=== PATIENT | female | born 1950 | race American Indian/Alaskan Native ===

== ENCOUNTER 2017-03-21 11:23 | Outpatient (CLI) | payer OTHER ==
--- NOTE | 2017-03-21 14:26 | Mammography Report ---
BILATERAL MAMMOGRAM with CAD: HISTORY: Cancer screening. Comparison study is dated February 18, 2015. FINDINGS: The breast tissue is heterogeneously dense, which could obscure detection of small masses (approximately 50%-75% glandular). No mass, distortion, suspicious calcification, or skin change is seen. Stable right calcifications have benign features. IMPRESSION: Negative mammogram. There is no mammographic evidence of malignancy. RECOMMENDATION: Follow-up per ACS guidelines. BI-RADS CATEGORY: 1 = Negative ACR BI-RADS MAMMOGRAPHIC CODES: 0 = Needs additional imaging evaluation; 1 = Negative; 2 = Benign; 3 = Probably benign; 4 = Suspicious; 5 = Malignant; 6 = Known biopsy-proven malignancy COMMENT: 1. Dense breast tissue, i.e., adenosis, fibrocystic changes, etc., may obscure an underlying neoplasm. 2. Approximately 10% of cancers are not detected with mammography. 3. A negative mammography report should not delay biopsy if a clinically suspicious mass is present. COMMENT: Patient follow-up letters are generated in [employer].
== END 2017-03-21 11:24 | disposition home or self-care (01) ==
LOC: MAMMO 11:23
PROVIDERS: ATTEND Nurse Practitioner Family
DX: Z12.31 Encounter for screening mammogram for malignant neoplasm of breast (principal); I10 Essential (primary) hypertension; E11.9 Type 2 diabetes mellitus without complications; E78.00 Pure hypercholesterolemia, unspecified; Z79.84 Long term (current) use of oral hypoglycemic drugs; Z79.899 Other long term (current) drug therapy
CPT/HCPCS: 77067; G0202

== ENCOUNTER 2018-03-30 09:29 | Outpatient (CLI) | payer OTHER ==
--- NOTE | 2018-04-02 09:53 | Mammography Report ---
BILATERAL DIGITAL SCREENING MAMMOGRAM and DIGITAL BREAST TOMOSYNTHESIS (DBT) : 03/30/18 CLINICAL: Routine screening. COMPARISON:03/21/17 FINDINGS: The breasts are heterogeneously dense, which may obscure small masses. No mass, architectural distortion or suspicious calcifications. Note that CAD was not utilized for this examination. IMPRESSION: No mammographic evidence of malignancy. BI-RADS CATEGORY: 1 - - Negative RECOMMENDATION: Routine mammographic screening in one year. COMMENT: Patient follow-up letters are generated by our [employer] application.
== END 2018-03-30 09:30 | disposition home or self-care (01) ==
LOC: SPVWC 09:29
PROVIDERS: ATTEND Nurse Practitioner Family
DX: Z12.31 Encounter for screening mammogram for malignant neoplasm of breast (principal)
CPT/HCPCS: 77063; 77067

== ENCOUNTER 2018-05-23 10:03 | Outpatient (CLI) | payer OTHER ==
--- NOTE | 2018-05-23 10:49 | XRay Report ---
LUMBOSACRAL SPINE, FIVE VIEWS: HISTORY: Low back pain. Compared to 09/10/10. There is borderline osteopenia. Normal height and alignment of the lumbar vertebra. Anterior fixation device and disc spacer at L5-S1 appears unchanged in position since 2010. The remaining disc spaces are within normal limits. There is moderate facet arthropathy through the lumbar spine which has increased significantly since 2010. L3-4 and L4-5 are the most affected levels. IMPRESSION: Lumbar spondylosis as described. There is increased facet arthropathy since the previous exam. Stable fusion changes at L5-S1. No acute process.
== END 2018-05-23 10:04 | disposition home or self-care (01) ==
LOC: XRAY 10:03
PROVIDERS: ATTEND Nurse Practitioner Family
DX: M47.896 Other spondylosis, lumbar region (principal); M43.27 Fusion of spine, lumbosacral region; E78.00 Pure hypercholesterolemia, unspecified; I10 Essential (primary) hypertension; K21.9 Gastro-esophageal reflux disease without esophagitis; E11.9 Type 2 diabetes mellitus without complications; M19.90 Unspecified osteoarthritis, unspecified site; Z90.710 Acquired absence of both cervix and uterus
CPT/HCPCS: 72110

== ENCOUNTER 2019-03-07 05:42 | Day surgery (SDC) | payer BC, OTHER ==
--- NOTE | 2019-03-07 06:59 | Anesthesia Consultation ---
Anesthesia Consult and Med Hx Date of service: 03/07/19 - Airway Anesthetic Teeth Evaluation: Dentures ROM Head & Neck: Adequate Mental/Hyoid Distance: Adequate Mallampati Class: Class II Intubation Access Assessment: Probably Good - Pulmonary Exam CTA: Yes - Cardiac Exam Cardiac Exam: RRR - Pre-Operative Health Status ASA Pre-Surgery Classification: ASA3 - Pulmonary Hx Smoking: Yes (STOPPED 1998) Hx Asthma: No COPD: No Hx Sleep Apnea: No (DONIS PRE SCREEN HIGH RISK) - Cardiovascular System Hx Hypertension: Yes (SINCE AGE 26 YRS) - Central Nervous System Hx Back Pain: Yes (WITH RIGHT LEG PAIN) Hx Psychiatric Problems: Yes - Gastrointestinal Hx Gastroesophageal Reflux Disease: Yes - Endocrine Hx Renal Disease: No Hx Insulin Dependent Diabetes: No Hx Non-Insulin Dependent Diabetes: Yes (last metformin 03/06/19) - Hematic Hx Anemia: No - Additional Comments Anesthesia Medical History Comments: H/O palpitations, on metoprolol. ECHO shows good LV function(EF 55-60) with diastolic dysfunction.
[2019-03-07] MEDS ORDERED: NACL 0.9% 1000 ML 1,000 ML IV SCH (07:00)
[2019-03-07] MEDS ORDERED: LOPRESSOR PO ONE (07:00)
[2019-03-07] MEDS ORDERED: SUBLIMAZE ONE (07:33)
[2019-03-07] MEDS ORDERED: XYLOCAINE MPF 2% ONE (07:33)
[2019-03-07] MEDS ORDERED: DIPRIVAN 10 MG/ML IV ONE ×2 (07:33→08:36)
[2019-03-07] MEDS ORDERED: MARCAINE 0.5% INFILTRATI ONE ×3 (07:43→08:32)
--- NOTE | 2019-03-07 07:50 | Anesthesia Day of Surgery ---
Anesthesia Day of Surgery - Day of Surgery Patient Examined: Yes Patient H&P Reviewed: Yes Patient is NPO: Yes
[2019-03-07] MEDS ORDERED: ANCEF/STERILE WATER 2 GM/20 ML IV NR (08:00)
[2019-03-07] MEDS ORDERED: ZOFRAN ONE (08:26)
[2019-03-07] MEDS: SUBLIMAZE IV PRN ×2 (09:20→09:30)
--- NOTE | 2019-03-07 09:45 | Procedure Note ---
Date of procedure: 03/07/19 Pre-op diagnosis: mass left thumb Post-op diagnosis: same Procedure: Excision mass left thumb Procedure The patient was brought to the OR placed on the OR table in supine position following Mac anesthesia the patient's left upper extremity was prepped and draped in the usual sterile manner. A timeout procedure was done to identify the patient and the correct operative site. The arm was exsanguinated followed by inflation of the pneumatic tourniquet to 250 mmHg utilizing a bayonet-type incision centered over the IP joint of the thumb this was taken down through skin and subcutaneous the mass was seen and appeared to be a lobulated firm brownish in color this mass was shelled out from surrounding soft tissue structures this was then given to our scrub nurse and will be processed and pathology in addition the patient was noted to have osteophyte formation off of the dorsal surface of the IP joint again this was removed using Yana Combs next the wound was copiously irrigated the extensor tendon was intact following this the skin was closed in a standard routine fashion. Dressings were applied the patient tolerated the procedure there were no complications Anesthesia: MAC Surgeon: MONTY SAWYER Estimated blood loss: minimal Pathology: list (mass right thumb) Specimen disposition: to lab Condition: stable Disposition: PACU
[2019-03-07] MEDS ORDERED: NORCO 5/325 PO PRN (10:23)
[2019-03-07 10:32] VITALS: BP 124/73
[2019-03-07] MEDS ORDERED: NORCO 5/325 ONE (10:33)
--- NOTE | 2019-03-07 12:42 | Post Anesthesia Evaluation ---
- Post Anesthesia Evaluation Patient Participated: Yes Airway Patent: Yes Stable Respiratory Function: Yes Nausea/Vomiting: No Temp > 96.8F: Yes Pain Manageable: Yes Adequeate Hydration: Yes Anesthesia Complications: No
== END 2019-03-07 10:45 | disposition home or self-care (01) ==
LOC: OR 05:42
PROVIDERS: ATTEND Orthopaedic Surgery
DX: D48.1 Neoplasm of uncertain behavior of connective and other soft tissue (principal); E78.00 Pure hypercholesterolemia, unspecified; I10 Essential (primary) hypertension; K21.9 Gastro-esophageal reflux disease without esophagitis; M19.90 Unspecified osteoarthritis, unspecified site; E11.9 Type 2 diabetes mellitus without complications; F32.9 Major depressive disorder, single episode, unspecified; F41.9 Anxiety disorder, unspecified; Z79.899 Other long term (current) drug therapy; Z98.890 Other specified postprocedural states; Z79.82 Long term (current) use of aspirin; Z79.84 Long term (current) use of oral hypoglycemic drugs; Z98.51 Tubal ligation status; Z90.710 Acquired absence of both cervix and uterus; Z87.891 Personal history of nicotine dependence
CPT/HCPCS: 26160; 36415; 82962; 84132; 88307; J0690; J2405; J2704; J3010; J7030

== ENCOUNTER 2019-04-04 07:48 | Outpatient (CLI) | payer BC ==
--- NOTE | 2019-04-04 10:50 | Mammography Report ---
BILATERALDIGITAL SCREENING MAMMOGRAM WITH CAD INDICATION: Routine screening mammography. TECHNIQUE: Digital bilateral 2D mammography was obtained in the craniocaudal and mediolateral obliq ue projections. This examination was interpreted with the benefit of Computer-Aided Detection analysi s. COMPARISON: 03/21/2017 FINDINGS: Breast Density: The breasts are heterogeneously dense, which may obscure small masses. There is no evidence of dominant mass, suspicious calcifications or architectural distortion in eith er breast. IMPRESSION: No mammographic evidence of malignancy. BI-RADS Category 2: Benign. No mammographic evidence of malignancy. Recommend routine screening ma mmography in one year. A "normal" or negative report should not discourage follow up or biopsy of a clinically significant f inding. A written summary of these findings will be mailed to the patient. The patient will be entered into a mammography reporting system which will generate a reminder letter for the patient's next appointmen t at the appropriate interval. The [employer] recommends yearly mammograms starting at age 40 and continuing as l negro as a woman is in good health. Breast MRI is recommended for women with an approximate 20-25% or greater lifetime risk of breast cancer, including women with a strong family history of breast or ova mc cancer or who have been treated for Hodgkin's disease. Signer Name: Theron Medrano MD Signed: 04/04/2019 10:46 AM Workstation Name: [id number]
== END 2019-04-04 07:49 | disposition home or self-care (01) ==
LOC: MAMMO 07:48
PROVIDERS: ATTEND Nurse Practitioner Family
DX: Z12.31 Encounter for screening mammogram for malignant neoplasm of breast (principal); E78.00 Pure hypercholesterolemia, unspecified; K21.9 Gastro-esophageal reflux disease without esophagitis; E11.9 Type 2 diabetes mellitus without complications; Z90.710 Acquired absence of both cervix and uterus
CPT/HCPCS: 77067

== ENCOUNTER 2019-04-17 23:23 | Inpatient (IN) | payer BC ==
[2019-04-18 00:31] LABS: Basophils # (Auto) 0.1 K/mm3 (0.0-0.1); Basophils % (Auto) 0.5 % (0.0-1.8); Eosinophils % (Auto) 0.2 % (0.0-4.3); Hematocrit 37.6 % (30.3-42.9); Hemoglobin 12.2 gm/dl (10.1-14.3); Lymphocytes # (Auto) 1.5 K/mm3 (1.2-5.4); Mean Corpuscular HGB Conc 33 % (30-34); Mean Corpuscular Volume 80 fl (79-97); Monocytes # (Auto) 0.9 K/mm3 (0.0-0.8); Monocytes % (Auto) 6.9 % (0.0-7.3); Platelet Count 190 K/mm3 (140-440)
[2019-04-18] MEDS ORDERED: NACL 0.9% 1000 ML IV ONE (00:35)
[2019-04-18] MEDS ORDERED: TYLENOL PO ONE (00:35)
--- NOTE | 2019-04-18 00:38 | Emergency Department Report ---
ED General Adult HPI - General Chief complaint: Abdominal Pain Stated complaint: CHEST PAIN Time Seen by Provider: 04/18/19 00:26 Source: patient, RN notes reviewed, old records reviewed Mode of arrival: Ambulatory Limitations: No Limitations - History of Present Illness Initial comments: Primary care Dr.: Dr. Gibbons Past medical history: Hypertension, presumed neuropathy, on aspirin, diabetes, taking estradiol, arthritis, joint pain, back pain, reflux This is a 68-year-old female. The patient is not known to this provider previously. Patient presents to the ER with multiple complaints. Her first complaint is chest pain after swallowing. This started within the past 36 hours after she ate some raw hamburger. It does not radiate to the back, arms or neck. There is no vomiting. There is no diaphoresis. Her next complaint is abdominal and flank pain. The flank pain is in the right posterior flank, and left upper quadrant. It is intermittent. It does not radiate anywhere. It does not have exacerbating or relieving factors. Positive dysuria. No fevers that she is aware of. Complaint is headache. Headache is frontal. The headache is also bitemporal. The headache is present for the past 24-48 hours. The headache is not sudden or thunderclap in nature. The headache does not reach maximal intensity within the first hour of onset. It is not the worst headache of her life. She endorses a worse headache approximately 10 years ago. No neck pain, no loss of vision, no dental pain. She takes aspirin, but denies DVT, pulmonary embolism risk factors. Recently had elective surgery on her left thumb last month by Dr. Browne. -: Gradual, hour(s) Location: chest, back, abdomen Radiation: other Quality: other Consistency: other Improves with: other Worsens with: other - Related Data Home Medications Medication Instructions Recorded Confirmed Last Taken Aspirin 325 mg PO DAILY 09/02/15 03/07/19 03/01/19 09:00 Metoprolol 100 mg PO BID 09/02/15 03/07/19 03/06/19 Triamterene/Hydrochlorothiazid 1 tab PO DAILY 09/02/15 03/07/19 03/07/19 04:30 [Triamterene-Hctz 75-50 mg] metFORMIN 750 mg PO DAILY 08/23/16 03/07/19 03/06/19 09:00 Prazosin [Minipress] 2 mg PO BID 08/25/16 03/07/19 03/07/19 05:00 Baclofen [Lioresal] 10 mg PO DAILY 02/27/19 03/07/19 03/06/19 09:00 Gabapentin [Neurontin] 300 mg PO QHS 02/27/19 03/07/19 03/06/19 09:00 Pravastatin [Pravachol] 40 mg PO QHS 02/27/19 03/07/19 03/07/19 04:30 Previous Rx's Medication Instructions Recorded Last Taken Type HYDROcodone/APAP 5-325 [Frohna 1 each PO Q4HR PRN #20 tablet 03/07/19 Unknown Rx 5-325 mg TAB] Allergies Allergy/AdvReac Type Severity Reaction Status Date / Time No Known Allergies Allergy Verified 11/18/15 08:32 ED Review of Systems ROS: Stated complaint: CHEST PAIN Other details as noted in HPI Constitutional: denies: malaise Eyes: denies: eye discharge ENT: denies: epistaxis Respiratory: denies: wheezing Cardiovascular: chest pain Gastrointestinal: abdominal pain. denies: nausea Genitourinary: dysuria Musculoskeletal: back pain Skin: denies: lesions Neurological: headache. denies: weakness Psychiatric: denies: anxiety ED Past Medical Hx - Past Medical History Previous Medical History?: Yes Hx Hypertension: Yes (SINCE AGE 26 YRS) Hx Diabetes: Yes Hx GERD: Yes Hx Renal Disease: No Hx Arthritis: Yes Hx Asthma: No Hx COPD: No Hx HIV: No - Surgical History Past Surgical History?: Yes Additional Surgical History: Hysterectomy, Spinal fusion, Tubal ligation - Social History Smoking Status: Never Smoker Substance Use Type: None - Medications Home Medications: Home Medications Medication Instructions Recorded Confirmed Last Taken Type Aspirin 325 mg PO DAILY 09/02/15 03/07/19 03/01/19 09:00 History Metoprolol 100 mg PO BID 09/02/15 03/07/19 03/06/19 History Triamterene/Hydrochlorothiazid 1 tab PO DAILY 09/02/15 03/07/19 03/07/19 04:30 History [Triamterene-Hctz 75-50 mg] metFORMIN 750 mg PO DAILY 08/23/16 03/07/19 03/06/19 09:00 History Prazosin [Minipress] 2 mg PO BID 08/25/16 03/07/19 03/07/19 05:00 History Baclofen [Lioresal] 10 mg PO DAILY 02/27/19 03/07/19 03/06/19 09:00 History Gabapentin [Neurontin] 300 mg PO QHS 02/27/19 03/07/19 03/06/19 09:00 History Pravastatin [Pravachol] 40 mg PO QHS 02/27/19 03/07/19 03/07/19 04:30 History HYDROcodone/APAP 5-325 [Frohna 1 each PO Q4HR PRN #20 tablet 03/07/19 Unknown Rx 5-325 mg TAB] ED Physical Exam - General Limitations: No Limitations General appearance: alert, in no apparent distress - Head Head exam: Present: atraumatic, normocephalic - Eye Eye exam: Present: normal appearance, EOMI, other (visual acuity intact to finger counting, color perception, reading at a close distance). Absent: nyst agmus - ENT ENT exam: Present: normal exam, normal orophraynx, mucous membranes moist, normal external ear exam - Neck Neck exam: Present: normal inspection, full ROM. Absent: tenderness, meningismus - Respiratory Respiratory exam: Present: normal lung sounds bilaterally. Absent: respiratory distress - Cardiovascular Cardiovascular Exam: Present: normal rhythm, tachycardia, normal heart sounds. Absent: systolic murmur, diastolic murmur, rubs, gallop - GI/Abdominal GI/Abdominal exam: Present: soft. Absent: distended, tenderness, guarding, rebound, rigid, pulsatile mass - Extremities Exam Extremities exam: Present: normal inspection (left thumb has indwelling sutures, no redness, pus or streaking. Compartments soft in the left hand), full ROM, other (2+ pulses noted in the bilateral upper, lower extremities. Compartments soft. No long bony tenderness. The pelvis is stable.). Absent: pedal edema, joint swelling, calf tenderness - Back Exam Back exam: Present: normal inspection, full ROM, CVA tenderness (R), CVA tenderness (L). Absent: tenderness, muscle spasm, paraspinal tenderness, vertebral tenderness - Neurological Exam Neurological exam: Present: alert, oriented X3, other (Extraocular movements intact. Tongue midline. No facial droop. Facial sensation intact to light touch in the V1, V2, V3 distribution bilaterally. 5 and 5 strength in 4 extremities.. Sensation is intact to light touch in 4 extremities.). Absent: motor sensory deficit - Psychiatric Psychiatric exam: Present: normal affect, normal mood - Skin Skin exam: Present: warm, dry, intact, normal color. Absent: rash ED Course Vital Signs 04/17/19 04/18/19 23:35 01:09 Temperature 100.6 F H Pulse Rate 105 H Respiratory 19 16 Rate Blood Pressure 110/50 O2 Sat by Pulse 98 100 Oximetry - Reevaluation(s) Reevaluation #1: 04/18/19 01:24 Differential diagnosis, including but not limited to: Pneumonia, urinary tract infection, pulmonary embolism, GERD, gastritis, hiatal hernia, intra-abdominal infection, migraine headache, tension headache, cluster headache, dysphasia Assessment and plan: 68-year-old female with multiple complaints Complaint #1, chest pain after swallowing. Has a documented history of reflux. Troponin negative 1, EKG shows sinus tachycardia, not consistent with ST elevat ion myocardial infarction. Suspect this is related to esophageal dysmotility. However, given fever, tachycardia, recent surgery, we will obtain CT scan of the chest to exclude a pulmonary embolism. Complaint #2, flank pain and back pain, found to have a fever, tachycardia, leukocytosis, endorses dysuria, therefore, the patient most likely has a pyelonephritis. We will treat this with fluids, Tylenol and appropriate antibiotics. Complaint #3, headache. The patient has a GCS of 15. There is no neck pain or neck stiffness. She does not endorse any red flag signs or symptoms for her headache. She endorses that it appears to be consistent with prior headaches. She can receive IV fluids and Tylenol for her headache. More likely than not, plan to admit the patient to the medical service for advanced age, systemic inflammatory response syndrome. Found to be hypokalemic, and we will replete her potassium. ED Medical Decision Making - Lab Data Result diagrams: 04/17/19 23:59 04/17/19 23:59 Vital Signs 04/17/19 04/18/19 23:35 01:09 Temperature 100.6 F H Pulse Rate 105 H Respiratory 19 16 Rate Blood Pressure 110/50 O2 Sat by Pulse 98 100 Oximetry Lab Results 04/17/19 04/17/19 04/17/19 Range/Units Unknown 23:59 23:59 WBC 13.2 H (4.5-11.0) K/mm3 RBC 4.70 (3.65-5.03) M/mm3 Hgb 12.2 (10.1-14.3) gm/dl Hct 37.6 (30.3-42.9) % MCV 80 (79-97) fl MCH 26 L (28-32) pg MCHC 33 (30-34) % RDW 14.0 (13.2-15.2) % Plt Count 190 (140-440) K/mm3 Lymph % (Auto) 11.0 L (13.4-35.0) % [place] % (Auto) 6.9 (0.0-7.3) % Eos % (Auto) 0.2 (0.0-4.3) % Baso % (Auto) 0.5 (0.0-1.8) % Lymph # 1.5 (1.2-5.4) K/mm3 [place] # 0.9 H (0.0-0.8) K/mm3 Eos # 0.0 (0.0-0.4) K/mm3 Baso # 0.1 (0.0-0.1) K/mm3 Seg Neutrophils % 81.4 H (40.0-70.0) % Seg Neutrophils # 10.7 H (1.8-7.7) K/mm3 Sodium 138 (137-145) mmol/L Potassium 2.9 L* (3.6-5.0) mmol/L Chloride 95.5 L (98-107) mmol/L Carbon Dioxide 29 (22-30) mmol/L Anion Gap 16 mmol/L BUN 13 (7-17) mg/dL Creatinine 0.9 (0.7-1.2) mg/dL Estimated GFR > 60 ml/min BUN/Creatinine Ratio 14 % Glucose 136 H (65-100) mg/dL Calcium 9.5 (8.4-10.2) mg/dL Total Bilirubin 0.30 (0.1-1.2) mg/dL AST 15 (5-40) units/L ALT 12 (7-56) units/L Alkaline Phosphatase 66 (35-129) units/L Total Protein 7.8 (6.3-8.2) g/dL Albumin 4.1 (3.9-5) g/dL Albumin/Globulin Ratio 1.1 % Lipase (13-60) units/L Urine Color Yellow (Yellow) Urine Turbidity Slightly-cloudy (Clear) Urine pH 7.0 (5.0-7.0) Ur Specific [place] 1.015 (1.003-1.030) Urine Protein 30 mg/dl (Negative) mg/dL Urine Glucose (UA) Neg (Negative) mg/dL Urine Ketones Tr (Negative) mg/dL Urine Blood Sm (Negative) Urine Nitrite Neg (Negative) Urine Bilirubin Neg (Negative) Urine Urobilinogen 2.0 (<2.0) mg/dL Ur Leukocyte Esterase Lg (Negative) Urine WBC (Auto) 148.0 H (0.0-6.0) /HPF Urine RBC (Auto) 15.0 (0.0-6.0) /HPF U Epithel Cells (Auto) 10.0 (0-13.0) /HPF Urine Bacteria (Auto) 1+ (Negative) /HPF Urine Mucus Few /HPF 04/17/19 Range/Units 23:59 WBC (4.5-11.0) K/mm3 RBC (3.65-5.03) M/mm3 Hgb (10.1-14.3) gm/dl Hct (30.3-42.9) % MCV (79-97) fl MCH (28-32) pg MCHC (30-34) % RDW (13.2-15.2) % Plt Count (140-440) K/mm3 Lymph % (Auto) (13.4-35.0) % [place] % (Auto) (0.0-7.3) % Eos % (Auto) (0.0-4.3) % Baso % (Auto) (0.0-1.8) % Lymph # (1.2-5.4) K/mm3 [place] # (0.0-0.8) K/mm3 Eos # (0.0-0.4) K/mm3 Baso # (0.0-0.1) K/mm3 Seg Neutrophils % (40.0-70.0) % Seg Neutrophils # (1.8-7.7) K/mm3 Sodium (137-145) mmol/L Potassium (3.6-5.0) mmol/L Chloride (98-107) mmol/L Carbon Dioxide (22-30) mmol/L Anion Gap mmol/L BUN (7-17) mg/dL Creatinine (0.7-1.2) mg/dL Estimated GFR ml/min BUN/Creatinine Ratio % Glucose (65-100) mg/dL Calcium (8.4-10.2) mg/dL Total Bilirubin (0.1-1.2) mg/dL AST (5-40) units/L ALT (7-56) units/L Alkaline Phosphatase (35-129) units/L Total Protein (6.3-8.2) g/dL Albumin (3.9-5) g/dL Albumin/Globulin Ratio % Lipase 28 (13-60) units/L Urine Color (Yellow) Urine Turbidity (Clear) Urine pH (5.0-7.0) Ur Specific [place] (1.003-1.030) Urine Protein (Negative) mg/dL Urine Glucose (UA) (Negative) mg/dL Urine Ketones (Negative) mg/dL Urine Blood (Negative) Urine Nitrite (Negative) Urine Bilirubin (Negative) Urine Urobilinogen (<2.0) mg/dL Ur Leukocyte Esterase (Negative) Urine WBC (Auto) (0.0-6.0) /HPF Urine RBC (Auto) (0.0-6.0) /HPF U Epithel Cells (Auto) (0-13.0) /HPF Urine Bacteria (Auto) (Negative) /HPF Urine Mucus /HPF - EKG Data -: EKG Interpreted by Ct EKG shows normal: sinus rhythm Rate: tachycardia - EKG Data 04/18/19 01:26 This is a sinus tachycardia, 102 bpm, normal axis, normal intervals, borderline left ventricular hypertrophy, the EKG is abnormal, the EKG is not consistent with ST elevation myocardial infarction. The EKG appears to be grossly unchanged from prior EKG from October 2015. - Radiology Data Radiology results: pending Critical care attestation.: If time is entered above; I have spent that time in minutes in the direct care of this critically ill patient, excluding procedure time. ED Disposition Clinical Impression: Sepsis, Pyelonephritis, Acute chest pain, Headache, Hypokalemia Disposition: OP ADMIT IP TO THIS HOSP Is pt being admited?: Yes Condition: Good Instructions: Abdominal Pain (ED), Chest Pain (ED) Referrals: ED DECKER MD [Primary Care Provider] - 3-5 Days
[2019-04-18 00:51] LABS: Alanine Aminotransferase 12 units/L (7-56); Albumin 4.1 g/dL (3.9-5); BUN/Creatinine Ratio 14; Blood Urea Nitrogen 13 mg/dL (7-17); Calcium 9.5 mg/dL (8.4-10.2); Hemolysis Index 1
[2019-04-18 01:09] LABS: Bacteria,Urine 1+ /HPF (Negative); Bilirubin,Urine NEG (Negative); Blood,Urine SM (Negative); Color,Urine Yellow (Yellow); Mucus,Urine FEW /HPF
[2019-04-18] MEDS ORDERED: ROCEPHIN/NS 1 GM/50 ML 1 GM/50 ML BAG IV ONE (01:17)
[2019-04-18] MEDS ORDERED: K-DUR PO ONE (01:18)
--- NOTE | 2019-04-18 01:24 | XRay Report ---
CHEST 1 VIEW 04/18/2019 12:38 AM INDICATION / CLINICAL INFORMATION: Chest pain and fever. One day history of chest and abdominal pain occurring after eating with radiati on to the back. COMPARISON: None available. FINDINGS: SUPPORT DEVICES: None. HEART / MEDIASTINUM: No significant abnormality. LUNGS / PLEURA: No significant pulmonary or pleural abnormality. No pneumothorax. ADDITIONAL FINDINGS: No significant additional findings. IMPRESSION: No acute findings. Signer Name: Cachorro Ross MD Signed: 04/18/2019 1:19 AM Workstation Name: [email or web address]
[2019-04-18 01:58] LABS: INR 1.1 (0.87-1.13)
[2019-04-18 01:59] LABS: Partial Thromboplastin Time 29.8 Sec. (24.2-36.6)
--- NOTE | 2019-04-18 02:43 | Cat Scan Report ---
CT HEAD WITHOUT CONTRAST INDICATION : Headache. Fever. TECHNIQUE: Axial, coronal and sagittal CT imaging was performed from the skull apex through the skul l base without contrast. All CT scans at this location are performed using CT dose reduction for ALA RA by means of automated exposure control. COMPARISON: None available. FINDINGS: PARENCHYMA: No mass, midline shift, hemorrhage, extraaxial collection or acute territorial infarctio n. VENTRICLES: Symmetric and normal in size. SOFT TISSUES: Soft tissues including the orbits appear normal. BONES: No acute osseous abnormality. SINUSES: No significant abnormality. ADDITIONAL FINDINGS: None. IMPRESSION: No acute abnormality. Signer Name: Cachorro Ross MD Signed: 04/18/2019 2:38 AM Workstation Name: [id number]
--- NOTE | 2019-04-18 03:35 | Cat Scan Report ---
CTA CHEST WITH IV CONTRAST INDICATION: Chest pain. Fever. Dysphagia. TECHNIQUE: Axial CT images were obtained through the chest after injection of 100 cc Omnipaque 350 IV contrast. 3 plane MIP reconstructions were produced. All CT scans at this location are performed using CT dose reduction for ALARA by means of automated exposure control. COMPARISON: One view of the chest from earlier today. FINDINGS: PULMONARY ARTERIES: Well-opacified without visualization of thromboemboli. AORTA AND ARTERIES: No acute abnormality. MEDIASTINUM: No mass, lymphadenopathy or other significant abnormality. The heart is normal in size w ithout a pericardial effusion. The trachea and main bronchi are patent and normal in caliber. LUNGS: Dependent atelectasis is noted bilaterally without a suspicious area of consolidation, nodule or mass. No pneumothorax or pleural effusion is seen. ADDITIONAL FINDINGS: None. UPPER ABDOMEN: No acute findings. BONES: No significant osseous abnormality. IMPRESSION: 1. No CT evidence for pulmonary embolism. 2. No acute findings. Signer Name: Cachorro Ross MD Signed: 04/18/2019 3:30 AM Workstation Name: [id number]
--- NOTE | 2019-04-18 04:06 | Cat Scan Report ---
CT ABDOMEN AND PELVIS WITH CONTRAST HISTORY: Generalized abdominal pain since Monday. Back pain. Fever. COMPARISON: No relevant prior imaging study available. TECHNIQUE: Axial, coronal and sagittal CT imaging of the abdomen and pelvis was performed after inje ction of 100 cc Omnipaque [address] scans at this location are performed using CT dose red uction for ALARA by means of automated exposure control. FINDINGS: LOWER CHEST: There is bibasilar atelectasis without an additional significant abnormality. LIVER: Enlarged without an additional significant abnormality. BILIARY: No significant abnormality. PANCREAS: No significant abnormality. SPLEEN: No significant abnormality. ADRENALS: No significant abnormality. KIDNEYS AND URETERS: Patchy areas of decreased attenuation are seen throughout the left kidney and to a lesser extent along the right kidney. No distinct mass, stones or hydroureteronephrosis. GI TRACT: No significant abnormality of the stomach or small bowel. There is generalized colonic dive rticulosis without evidence of diverticulitis. Unremarkable appendix. PERITONEUM: No free fluid. No free air. No fluid collection. LYMPH NODES: Shotty periaortic nodes are present. VASCULATURE: The aorta is normal in caliber with mild aortoiliac atherosclerosis. URINARY BLADDER: No significant abnormality. REPRODUCTIVE ORGANS: Prior hysterectomy. No significant abnormality. ADDITIONAL FINDINGS: None. SKELETAL SYSTEM: No acute abnormality. There are degenerative changes of the spine. Fusion of L5-S1 a ppears unremarkable. IMPRESSION: 1. Suspected bilateral pyelonephritis. 2. Additional findings as above. Signer Name: Cachorro Ross MD Signed: 04/18/2019 4:01 AM Workstation Name: [id number]
[2019-04-18] MEDS ORDERED: NACL 0.9% 1000 ML 1,000 ML ONE (04:44)
[2019-04-18] MEDS ORDERED: ZOFRAN IV PRN (05:00)
[2019-04-18] MEDS ORDERED: SODIUM CHLORIDE FLUSH SYRINGE 10 ML IV PRN (05:00)
--- NOTE | 2019-04-18 05:07 | History and Physical Report ---
History of Present Illness Date of examination: 04/18/19 History of present illness: 68-year-old woman with a history of hypertension, diabetes, GERD comes to the emergency room with complaints of chest pain. Pain is in the epigastric area is which she described as a dull pain, intermittent 5 Minutes, intensity 5/10, no radiation, cannot identify exacerbating or relieving factors. Denies nausea and vomiting, palpitation, shortness of breath. Admits to dysuria, frequency, lower abdominal and flank pain, headache which is resolved Review of systems Constitutional: no weight loss, chills, fever Ears, eyes, nose, mouth and throat: no nasal congestion, no nasal discharge, no sinus pressure, no vision change, no red eye. Neck: No neck pain or rigidity. Cardiovascular: no palpitations, chest pain Respiratory: no cough, shortness of breath Gastrointestinal: no hematochezia, abdominal pain Genitourinary : no frequency , no hematuria Musculoskeletal: no joint swelling or muscle ache Integumentary: no rash, no pruritis Neurological: no parathesias, no focal weakness Endocrine: no cold or heat intolerance, no polyuria or polydipsia Hematologic/Lymphatic: no easy bruising, no easy bleeding, no gland swelling Allergic/Immunologic: no urticaria, no angioedema. PAST MEDICAL HISTORY:hypertension, diabetes, GERD PAST SURGICAL HISTORY: Hysterectomy, tubal ligation, spinal fusion SOCIAL HISTORY: Denies alcohol, drugs, tobacco FAMILY HISTORY: Hypertension Medications and Allergies Allergies Allergy/AdvReac Type Severity Reaction Status Date / Time No Known Allergies Allergy Verified 11/18/15 08:32 Home Medications Medication Instructions Recorded Confirmed Last Taken Type Aspirin 325 mg PO DAILY 09/02/15 04/18/19 03/01/19 09:00 History Metoprolol 100 mg PO BID 09/02/15 04/18/19 03/06/19 History Triamterene/Hydrochlorothiazid 1 tab PO DAILY 09/02/15 04/18/19 03/07/19 04:30 History [Triamterene-Hctz 75-50 mg] metFORMIN 750 mg PO DAILY 08/23/16 04/18/19 03/06/19 09:00 History Prazosin [Minipress] 2 mg PO BID 08/25/16 04/18/19 03/07/19 05:00 History Baclofen [Lioresal] 10 mg PO DAILY 02/27/19 04/18/19 03/06/19 09:00 History Gabapentin [Neurontin] 300 mg PO QHS 02/27/19 04/18/19 03/06/19 09:00 History Pravastatin [Pravachol] 40 mg PO QHS 02/27/19 04/18/19 03/07/19 04:30 History HYDROcodone/APAP 5-325 [[place] 1 each PO Q4HR PRN #20 tablet 03/07/19 04/18/19 Unknown Rx 5-325 mg TAB] Active Meds: Active Medications Acetaminophen (Tylenol) 650 mg PO Q4H PRN PRN Reason: Pain MILD(1-3)/Fever >100.5/ARIAS Enoxaparin Sodium (Lovenox) 30 mg SUB-Q QDAY TERRANCE Ondansetron HCl (Zofran) 4 mg IV Q8H PRN PRN Reason: Nausea And Vomiting Oxycodone/Acetaminophen (Percocet 5/325) 1 tab PO Q6H PRN PRN Reason: Pain, Moderate (4-6) Sodium Chloride (Sodium Chloride Flush Syringe 10 Ml) 10 ml IV BID TERRANCE Sodium Chloride (Sodium Chloride Flush Syringe 10 Ml) 10 ml IV PRN PRN PRN Reason: LINE FLUSH Exam - Physical Exam Narrative exam: General Apperance: The patient lying in bed, breathing comfortable HEENT: Normocephalic, atraumatic. Pupils equally round and reactive to light, EOMI, no sclericterus or JVD or thyromegaly or nodule. , no carotid bruit, mucous membranes moist, no exudate or erythema Heart: S1-S2, regular is rhythm Lungs: Clear to auscultation bilaterally, breathing comfortable Abdomen: Positive bowel sounds, soft, nontender, nondistended, no organomegaly Extremities: No edema cyanosis clubbing Skin: no rash, nodule, warm and dry Neuro: cranial nerves 2-12 intact, speech is fluent, motor/sensory intact - Constitutional Vitals: Temp Pulse Resp BP Pulse Ox 98.8 F 90 18 131/85 99 04/18/19 03:10 04/18/19 03:10 04/18/19 03:10 04/18/19 03:10 04/18/19 03:10 Results - Labs CBC & Chem 7: 04/18/19 05:18 04/18/19 05:18 Labs: Abnormal lab results 04/17/19 04/17/19 04/17/19 Range/Units Unknown 23:59 23:59 WBC 13.2 H (4.5-11.0) K/mm3 MCH 26 L (28-32) pg Lymph % (Auto) 11.0 L (13.4-35.0) % [place] # 0.9 H (0.0-0.8) K/mm3 Seg Neutrophils % 81.4 H (40.0-70.0) % Seg Neutrophils # 10.7 H (1.8-7.7) K/mm3 D-Dimer (0-234) ng/mlDDU Potassium 2.9 L* (3.6-5.0) mmol/L Chloride 95.5 L (98-107) mmol/L Glucose 136 H (65-100) mg/dL Urine WBC (Auto) 148.0 H (0.0-6.0) /HPF 04/18/19 Range/Units 01:07 WBC (4.5-11.0) K/mm3 MCH (28-32) pg Lymph % (Auto) (13.4-35.0) % [place] # (0.0-0.8) K/mm3 Seg Neutrophils % (40.0-70.0) % Seg Neutrophils # (1.8-7.7) K/mm3 D-Dimer 632.59 H (0-234) ng/mlDDU Potassium (3.6-5.0) mmol/L Chloride (98-107) mmol/L Glucose (65-100) mg/dL Urine WBC (Auto) (0.0-6.0) /HPF - Imaging and Cardiology EKG: image reviewed Chest x-ray: report reviewed CT scan - abdomen: report reviewed CT scan - chest: report reviewed CT Scan - head: report reviewed CT scan - pelvis: report reviewed Assessment and Plan Assessment Chest pain, rule out ACS Bilateral pyelonephritis Hypokalemia Hypertension Diabetes GERD Plan Admit to medicine Check cardiac enzymes, stress test Start IV Rocephin, follow cultures, potassium repleted Check fingersticks initiate insulin sliding scale DVT prophylaxis
[2019-04-18] MEDS ORDERED: APRESOLINE IV PRN (05:08)
[2019-04-18] MEDS ORDERED: D50W (25GM) Syringe IV PRN (05:09)
[2019-04-18 05:36] LABS: Basophils % (Auto) 0.4 % (0.0-1.8); Eosinophils % (Auto) 0.1 % (0.0-4.3); Hemoglobin 11.9 gm/dl (10.1-14.3); Lymphocytes # (Auto) 1.1 K/mm3 (1.2-5.4); Lymphocytes % (Auto) 9.3 % (13.4-35.0); Mean Corpuscular HGB Conc 32 % (30-34); Mean Corpuscular Volume 81 fl (79-97); Monocytes # (Auto) 0.3 K/mm3 (0.0-0.8); Monocytes % (Auto) 2.8 % (0.0-7.3); Platelet Count 166 K/mm3 (140-440); Red Blood Count 4.56 M/mm3 (3.65-5.03); Red Cell Distribution Width 14.2 % (13.2-15.2)
[2019-04-18 05:56] LABS: BUN/Creatinine Ratio 14; Blood Urea Nitrogen 11 mg/dL (7-17); Calcium 8.4 mg/dL (8.4-10.2); Hemolysis Index 229
[2019-04-18] MEDS: TYLENOL PO PRN ×2 (07:01→20:22)
[2019-04-18] MEDS ORDERED: LEXISCAN IV ONE ×2 (07:55→08:00)
[2019-04-18] MEDS ORDERED: NON-FORMULARY (Aspirin 325 MG) PO SCH (10:00)
[2019-04-18] MEDS ORDERED: TRIAMTERENE PO SCH (10:00)
[2019-04-18] MEDS ORDERED: HYDROCHLOROTHIAZID PO SCH (10:00)
[2019-04-18] MEDS ORDERED: LOVENOX SUB-Q SCH (10:00)
--- NOTE | 2019-04-18 11:26 | Vascular Lab Report ---
BILATERAL DUPLEX DOPPLER LOWER EXTREMITY VEINS INDICATION: Bilateral lower extremity pain and swelling TECHNIQUE: Duplex doppler imaging was performed through the veins of both lower extremities using flor ous compression and other maneuvers. COMPARISON: None available. FINDINGS: Right Common Femoral vein: Negative. Right Superficial Femoral vein: Negative. Right Popliteal vein: Negative. Right Calf veins: Negative. Left Common Femoral vein: Negative. Left Superficial Femoral vein: Negative. Left Popliteal vein: Negative. Left Calf veins: Negative. Additional findings: None. IMPRESSION: No sonographic evidence for DVT in either lower extremity. Signer Name: Guilherme Giles MD Signed: 04/18/2019 11:21 AM Workstation Name: [id number]
[2019-04-18] MEDS: LIORESAL PO SCH (12:46)
[2019-04-18] MEDS: MINIPRESS PO SCH ×2 (12:46→22:09)
[2019-04-18] MEDS: ASPIRIN PO SCH (12:46)
[2019-04-18] MEDS: MAXZIDE-25 PO SCH (12:46)
[2019-04-18] MEDS: LOVENOX SUB-Q SCH (12:47)
[2019-04-18] MEDS: SODIUM CHLORIDE FLUSH SYRINGE 10 ML IV SCH ×2 (12:47→22:15)
[2019-04-18] MEDS: HumuLIN R SUB-Q SCH ×3 (12:47→22:08)
--- NOTE | 2019-04-18 16:08 | Event Note ---
Date: 04/18/19 Patient seen and examined, noted some treatment for UTI about 2 weeks ago and then shortly before admission felt she ingested burger with "bad meat" had a sensation of food stuck in his throat. She is advised of clinical finding and plan of care including monitoring for 24-48 hrs of no fever. Continue abx
[2019-04-18] MEDS: PRAVACHOL PO SCH (22:08)
[2019-04-18] MEDS: NEURONTIN PO SCH (22:08)
[2019-04-18] MEDS: ROCEPHIN/NS 1 GM/50 ML 1 GM/50 ML BAG IV SCH (22:17)
[2019-04-19] MEDS: HumuLIN R SUB-Q SCH ×6 (01:08→21:37)
[2019-04-19 05:29] LABS: Hematocrit 34.9 % (30.3-42.9); Hemoglobin 11.6 gm/dl (10.1-14.3); Mean Corpuscular HGB Conc 33 % (30-34); Mean Corpuscular Volume 80 fl (79-97); Red Blood Count 4.39 M/mm3 (3.65-5.03)
[2019-04-19 05:30] LABS: Platelet Count 163 K/mm3 (140-440); Red Cell Distribution Width 14.2 % (13.2-15.2)
[2019-04-19 05:44] LABS: Calcium 8.5 mg/dL (8.4-10.2); Hemolysis Index 0
[2019-04-19 06:16] LABS: BUN/Creatinine Ratio 8; Blood Urea Nitrogen 6 mg/dL (7-17)
[2019-04-19] MEDS ORDERED: K-DUR PO NR (08:24)
[2019-04-19] MEDS: PERCOCET 5/325 PO PRN ×2 (08:24→20:00)
[2019-04-19] MEDS: ASPIRIN PO SCH (10:01)
[2019-04-19] MEDS: LOVENOX SUB-Q SCH (10:01)
[2019-04-19] MEDS: SODIUM CHLORIDE FLUSH SYRINGE 10 ML IV SCH ×2 (10:03→21:44)
[2019-04-19] MEDS: LIORESAL PO SCH (10:03)
[2019-04-19] MEDS: MAXZIDE-25 PO SCH (10:11)
--- NOTE | 2019-04-19 13:22 | Treadmill Report ---
SINGLE ISOTOPE DUAL STUDY MYOCARDIAL PERFUSION SCAN REPORT AGE: 68. SEX: Female. REFERRING PHYSICIAN: Dr. Erlinda Todd ____. Seen and directed by Dr. Татьяна Kwan. DESCRIPTION OF PROCEDURE: The patient received 10 mCi of technetium 99m Myoview intravenously under resting conditions. Resting myocardial perfusion scan was done. Subsequently, the patient underwent Lexiscan stress test as per the protocol. During Lexiscan stress, the patient received 28 mCi of technetium 99m Myoview intravenously. After 30-60 minutes, post stress images were done. Computerized reconstruction images were performed for analysis. The post-stress images did not reveal any perfusion abnormality. Gated study did not reveal any wall motion abnormality. The left ventricular ejection fraction was normal and was calculated to be 71%. The resting images were also normal. CONCLUSIONS: 1. Normal resting and stress myocardial perfusion scan images after the patient underwent Lexiscan stress test. 2. No wall motion abnormality. 3. Normal left ventricular ejection fraction of 71%. JOB# [id number] [facility]
--- NOTE | 2019-04-19 13:41 | Progress Note ---
Assessment and Plan Assessment and plan: 68-year-old woman with a history of hypertension, diabetes, GERD comes to the emergency room with complaints of chest pain. Pain is in the epigastric area is which she described as a dull pain, intermittent 5 Minutes, intensity 5/10, no radiation, cannot identify exacerbating or relieving factors. Denies nausea and vomiting, palpitation, shortness of breath. Admits to dysuria, frequency, lower abdominal and flank pain, headache which is resolved Per patient symptoms of dysuria and hematuria started about 2 weeks ago, had some antibiotics outpatient with temporal improvement in symptoms, while he maturia resolved, dysuria persisted Culture: Urine Cx- GNR Imaging CT head: Negative for acute pathology US/DOPPLER LOWER EXT: Negative for DVT CXR: Negative CTAP: Pyelonephritis, L5 through S1 fusion Sepsis secondary to Acute Cystitis Acute pyelonephritis GNR Hypokalemia Atypical chest pain secondary to GERD Severe GERD now improved, HTN DM Type 2 with Hyperglycemia Plan Continue supportive care Continue abx and monitor for resolution of fever stress test done and was negative, chest pain resolved DVT/GI prophy Can downgrade patient to [facility]. History Interval history: Chest pain and bilateral flank pain Patient seen and examined this time in no acute distress plus improvement in bilateral flank pain and chest pain. Hospitalist Physical - Physical exam Narrative exam: VITAL SIGNS: Reviewed. GENERAL: The patient appears normally developed, Vital signs as documented. HEAD: No signs of head trauma. EYES: Pupils are equal. Extraocular motions intact. EARS: Hearing grossly intact. MOUTH: Oropharynx is normal. NECK: No adenopathy, no JVD. CHEST: Chest with clear breath sounds bilaterally. No wheezes, rales, or rhonchi. CARDIAC: Regular rate and rhythm. S1 and S2, without murmurs, gallops, or rubs. VASCULAR: No Edema. Peripheral pulses normal and equal in all extremities. ABDOMEN: Soft, non tender and non distended. No rebound or guarding, and no masses palpated. Bowel Sounds normal. MUSCULOSKELETAL: Good range of motion of all major joints. Extremities without clubbing, cyanosis or edema. NEUROLOGIC EXAM: Alert and oriented x 3 No focal sensory or strength deficits. Speech normal. Follows commands. PSYCHIATRIC: Mood normal. SKIN: detial exam as documented in skin assessment - Constitutional Vitals: Temp Pulse Resp BP Pulse Ox 98.1 F 104 H 20 123/78 100 04/19/19 09:49 04/19/19 09:49 04/19/19 09:49 04/19/19 09:49 04/19/19 09:49 Results - Labs CBC & Chem 7: 04/19/19 04:45 04/19/19 04:45 Labs: Laboratory Last Values WBC 7.3 K/mm3 (4.5-11.0) 04/19/19 04:45 RBC 4.39 M/mm3 (3.65-5.03) 04/19/19 04:45 Hgb 11.6 gm/dl (10.1-14.3) 04/19/19 04:45 Hct 34.9 % (30.3-42.9) 04/19/19 04:45 MCV 80 fl (79-97) 04/19/19 04:45 MCH 27 pg (28-32) L 04/19/19 04:45 MCHC 33 % (30-34) 04/19/19 04:45 RDW 14.2 % (13.2-15.2) 04/19/19 04:45 Plt Count 163 K/mm3 (140-440) 04/19/19 04:45 Lymph % (Auto) 9.3 % (13.4-35.0) L 04/18/19 05:18 [place] % (Auto) 2.8 % (0.0-7.3) 04/18/19 05:18 Eos % (Auto) 0.1 % (0.0-4.3) 04/18/19 05:18 Baso % (Auto) 0.4 % (0.0-1.8) 04/18/19 05:18 Lymph # 1.1 K/mm3 (1.2-5.4) L 04/18/19 05:18 [place] # 0.3 K/mm3 (0.0-0.8) 04/18/19 05:18 Eos # 0.0 K/mm3 (0.0-0.4) 04/18/19 05:18 Baso # 0.0 K/mm3 (0.0-0.1) 04/18/19 05:18 Seg Neutrophils % 87.4 % (40.0-70.0) H 04/18/19 05:18 Seg Neutrophils # 10.7 K/mm3 (1.8-7.7) H 04/18/19 05:18 PT 13.9 Sec. (12.2-14.9) 04/18/19 01:07 INR 1.10 (0.87-1.13) 04/18/19 01:07 APTT 29.8 Sec. (24.2-36.6) 04/18/19 01:07 632.59 ng/mlDDU (0-234) H 04/18/19 01:07 Sodium 144 mmol/L (137-145) 04/19/19 04:45 Potassium 3.5 mmol/L (3.6-5.0) L D 04/19/19 04:45 Chloride 106.1 mmol/L (98-107) 04/19/19 04:45 Carbon Dioxide 27 mmol/L (22-30) 04/19/19 04:45 14 mmol/L 04/19/19 04:45 BUN 6 mg/dL (7-17) L 04/19/19 04:45 0.8 mg/dL (0.7-1.2) 04/19/19 04:45 Estimated GFR > 60 ml/min 04/19/19 04:45 8 % 04/19/19 04:45 Glucose 120 mg/dL (65-100) H 04/19/19 04:45 POC Glucose 138 (70-105) H 04/19/19 12:52 Lactic Acid 1.50 mmol/L (0.7-2.0) 04/18/19 03:38 Calcium 8.5 mg/dL (8.4-10.2) 04/19/19 04:45 0.30 mg/dL (0.1-1.2) 04/17/19 23:59 AST 15 units/L (5-40) 04/17/19 23:59 ALT 12 units/L (7-56) 04/17/19 23:59 66 units/L (35-129) 04/17/19 23:59 < 0.010 ng/mL (0.00-0.029) 04/18/19 03:38 7.8 g/dL (6.3-8.2) 04/17/19 23:59 4.1 g/dL (3.9-5) 04/17/19 23:59 1.1 % 04/17/19 23:59 28 units/L (13-60) 04/17/19 23:59 Yellow (Yellow) 04/17/19 Unknown Slightly-cloudy (Clear) 04/17/19 Unknown 7.0 (5.0-7.0) 04/17/19 Unknown Ur Specific [place] 1.015 (1.003-1.030) 04/17/19 Unknown 30 mg/dl mg/dL (Negative) 04/17/19 Unknown Neg mg/dL (Negative) 04/17/19 Unknown Tr mg/dL (Negative) 04/17/19 Unknown Sm (Negative) 04/17/19 Unknown Neg (Negative) 04/17/19 Unknown Neg (Negative) 04/17/19 Unknown 2.0 mg/dL (<2.0) 04/17/19 Unknown Ur Leukocyte Esterase Lg (Negative) 04/17/19 Unknown 148.0 /HPF (0.0-6.0) H 04/17/19 Unknown 15.0 /HPF (0.0-6.0) 04/17/19 Unknown U Epithel Cells (Auto) 10.0 /HPF (0-13.0) 04/17/19 Unknown 1+ /HPF (Negative) 04/17/19 Unknown Few /HPF 04/17/19 Unknown Active Medications - Current Medications Current Medications: Generic Name Dose Route Start Last Admin Trade Name Freq PRN Reason Stop Dose Admin Acetaminophen 650 mg 04/18/19 05:00 04/18/19 20:22 Tylenol PO 650 mg Q4H PRN Administration Pain MILD(1-3)/Fever >100.5/ARIAS Aspirin 325 mg 04/18/19 10:00 04/19/19 10:01 Aspirin PO 325 mg QDAY TERRANCE Administration Baclofen 10 mg 04/18/19 10:00 04/18/19 12:46 Lioresal PO 10 mg DAILY TERRANCE Administration Dextrose 50 ml 04/18/19 05:09 D50w (25gm) Syringe IV PRN PRN Hypoglycemia Enoxaparin Sodium 40 mg 04/18/19 10:00 04/19/19 10:01 Lovenox SUB-Q 40 mg QDAY@1000 TERRANCE Administration Gabapentin 300 mg 04/18/19 22:00 04/18/19 22:08 Neurontin PO 300 mg QHS TERRANCE Administration Hydralazine HCl 5 mg 04/18/19 05:08 Apresoline IV Q6H PRN Hypertension Ceftriaxone Sodium 1 gm in 50 mls @ 100 mls/hr 04/18/19 22:00 04/18/19 22:17 Rocephin/Ns 1 Gm/50 Ml IV 100 mls/hr Q24HR@2200 TERRANCE Administration Protocol Insulin Human Regular 0 units 04/18/19 07:30 04/19/19 09:00 Humulin R SUB-Q Not Given ACHS [facility] Protocol Ondansetron HCl 4 mg 04/18/19 05:00 Zofran IV Q8H PRN Nausea And Vomiting Oxycodone/Acetaminophen 1 tab 04/18/19 05:00 04/19/19 08:24 Percocet 5/325 PO 1 tab Q6H PRN Administration Pain, Moderate (4-6) Pravastatin Sodium 40 mg 04/18/19 22:00 04/18/19 22:08 Pravachol PO 40 mg QHS TERRANCE Administration Prazosin HCl 2 mg 04/18/19 10:00 04/18/19 22:09 Minipress PO 2 mg BID TERRANCE Administration Sodium Chloride 10 ml 04/18/19 10:00 04/19/19 10:03 Sodium Chloride Flush Syringe 10 Ml IV 10 ml BID TERRANCE Administration Sodium Chloride 10 ml 04/18/19 05:00 Sodium Chloride Flush Syringe 10 Ml IV PRN PRN LINE FLUSH Triamterene/HCTZ 2 each 04/18/19 10:00 04/19/19 10:11 Maxzide-25 PO 2 each QAM TERRANCE Administration
[2019-04-19] MEDS: MINIPRESS PO SCH ×2 (14:59→21:35)
[2019-04-19] MEDS: PRAVACHOL PO SCH (21:34)
[2019-04-19] MEDS: ROCEPHIN/NS 1 GM/50 ML 1 GM/50 ML BAG IV SCH (21:34)
[2019-04-19] MEDS: NEURONTIN PO SCH (21:34)
[2019-04-20 07:59] VITALS: BP 129/75
--- NOTE | 2019-04-20 08:41 | Discharge Summary ---
Providers - Providers Date of Admission: 04/19/19 10:07 Attending physician: CORA GROSS MD Primary care physician: KATHIE MANZANARES Hospitalization Condition: Good Hospital course: 68-year-old woman with a history of hypertension, diabetes, GERD comes to the emergency room with complaints of chest pain. Pain is in the epigastric area is which she described as a dull pain, intermittent 5 Minutes, intensity 5/10, no radiation, cannot identify exacerbating or relieving factors. Denies nausea and vomiting, palpitation, shortness of breath. Admits to dysuria, frequency, lower abdominal and flank pain, headache which is resolved Per patient symptoms of dysuria and hematuria started about 2 weeks ago, had some antibiotics outpatient with temporal improvement in symptoms, while hematuria resolved, dysuria persisted Culture: Urine Cx- GNR Imaging CT head: Negative for acute pathology US/DOPPLER LOWER EXT: Negative for DVT CXR: Negative CTAP: Pyelonephritis, L5 through S1 fusion Sepsis secondary to Acute Cystitis Acute pyelonephritis GNR Hypokalemia Atypical chest pain secondary to GERD Severe GERD now improved, HTN DM Type 2 with Hyperglycemia Plan Continue supportive care Continue abx and monitor for resolution of fever stress test done and was negative, chest pain resolved DVT/GI prophy Can downgrade patient to [facility]. Disposition: DC-01 TO HOME OR SELFCARE Exam - Constitutional Vitals: Temp Pulse Resp BP Pulse Ox 98.4 F 90 18 129/75 98 04/20/19 07:55 04/20/19 07:55 04/20/19 07:55 04/20/19 07:55 04/20/19 07:55 Plan Activity: advance as tolerated, fall precautions Diet: low fat, diabetic Special Instructions: record daily BP diary, record blood sugar diary Follow up with: ED DECKER MD [Referring] - 3-5 Days Prescriptions: Ciprofloxacin HCl [Ciprofloxacin TAB] 500 mg PO Q12HR #14 tab
[2019-04-20] MEDS: MINIPRESS PO SCH (10:27)
[2019-04-20] MEDS: MAXZIDE-25 PO SCH (10:27)
[2019-04-20] MEDS: LIORESAL PO SCH (10:27)
[2019-04-20] MEDS: ASPIRIN PO SCH (10:27)
[2019-04-20] MEDS: LOVENOX SUB-Q SCH (10:27)
[2019-04-20] MEDS: HumuLIN R SUB-Q SCH (10:28)
[2019-04-20] MEDS: SODIUM CHLORIDE FLUSH SYRINGE 10 ML IV SCH (10:28)
== END 2019-04-20 11:00 | disposition home or self-care (01) | DRG 872 ==
LOC: ED 23:23 → 4A 04-18 04:34 → INTOOBSV 04-18 04:34 → OBSVTOIN 04-19 10:07
PROVIDERS: ADMIT Internal Medicine; ATTEND Internal Medicine
DX: A41.9 Sepsis, unspecified organism (principal); N12 Tubulo-interstitial nephritis, not specified as acute or chronic; N30.01 Acute cystitis with hematuria; I10 Essential (primary) hypertension; K21.9 Gastro-esophageal reflux disease without esophagitis; E87.6 Hypokalemia; M19.90 Unspecified osteoarthritis, unspecified site; E11.65 Type 2 diabetes mellitus with hyperglycemia; Z90.710 Acquired absence of both cervix and uterus; Z98.51 Tubal ligation status; Z82.49 Family history of ischemic heart disease and other diseases of the circulatory system; Z79.82 Long term (current) use of aspirin; Z79.899 Other long term (current) drug therapy
CPT/HCPCS: 36415; 70450; 71045; 71275; 74177; 78452; 80048; 80053; 81001; 82140; 82962; 83690; 84484; 85025; 85027; 85379; 85610; 85730; 87040; 87076; 87086; 87186; 93005; 93010; 93017; 93970; G0378; A9270-GY; A9502; J0696; J1650; J1815; J2785; J7030; Q9967

== ENCOUNTER 2019-05-09 08:14 | Emergency (ER) | payer BC ==
[2019-05-09 08:31] VITALS: BP 130/77
[2019-05-09 09:28] LABS: Bilirubin,Urine NEG (Negative); Blood,Urine NEG (Negative); Color,Urine Yellow (Yellow); Mucus,Urine FEW /HPF; Protein,Urine <15 mg/dL mg/dL (Negative); Urobilinogen,Urine < 2.0 mg/dL (<2.0)
--- NOTE | 2019-05-09 10:21 | Emergency Department Report ---
ED Female HPI - General Chief complaint: Urogenital-Female Stated complaint: VAGINAL DISCOMFORT/DIZZY Time Seen by Provider: 05/09/19 10:02 Source: patient Mode of arrival: Ambulatory Limitations: No Limitations - History of Present Illness Initial comments: 68 yo F w/ hx of genital herpes and frequent UTI's presents to the ER with complaint of suprapubic pressure, dysuria and vaginal irritation. Pt recently discharged from this facility approx 2 wks ago following an admission for chest pain and UTI/ pyelonephritis. Pt was sent home on Cipro which she finished. After she finished the antibiotics, approx 1 week ago, pt states dysuria returned. Pt reports burning pain even without urination. Reports vaginal redness and irritation. Pt states her physician diagnosed her with a herpes outbreak last week. States she took valtrex twice a day for 5 days, states was not told to continue once a day after that. Pt reports she has an appt w/ her steel manager, Dr aDigle, on tomorrow. Pt denies vaginal discharge, vaginal bleeding, fever, vomiting, hematuria. MD Complaint: pelvic pain -: week(s) (1) Location: labia Radiation: non-radiating Severity: moderate Quality: burning Consistency: constant Improves with: none Worsens with: none, urination Associated Symptoms: dysuria. denies: vaginal discharge, vaginal bleeding, abdominal pain, nausea/vomiting, fever/chills, hematuria - Related Data Home Medications Medication Instructions Recorded Confirmed Last Taken Aspirin 325 mg PO DAILY 09/02/15 04/18/19 03/01/19 09:00 Metoprolol 100 mg PO BID 09/02/15 04/18/19 03/06/19 Triamterene/Hydrochlorothiazid 1 tab PO DAILY 09/02/15 04/18/19 03/07/19 04:30 [Triamterene-Hctz 75-50 mg] metFORMIN 750 mg PO DAILY 08/23/16 04/18/19 03/06/19 09:00 Prazosin [Minipress] 2 mg PO BID 08/25/16 04/18/19 03/07/19 05:00 Baclofen [Lioresal] 10 mg PO DAILY 02/27/19 04/18/19 03/06/19 09:00 Gabapentin [Neurontin] 300 mg PO QHS 02/27/19 04/18/19 03/06/19 09:00 Pravastatin [Pravachol] 40 mg PO QHS 02/27/19 04/18/19 03/07/19 04:30 Previous Rx's Medication Instructions Recorded Last Taken Type HYDROcodone/APAP 5-325 [[place] 1 each PO Q4HR PRN #20 tablet 03/07/19 Unknown Rx 5-325 mg TAB] Ciprofloxacin HCl [Ciprofloxacin 500 mg PO Q12HR #14 tab 04/20/19 Unknown Rx TAB] Allergies Allergy/AdvReac Type Severity Reaction Status Date / Time No Known Allergies Allergy Verified 11/18/15 08:32 ED Review of Systems ROS: Stated complaint: VAGINAL DISCOMFORT/DIZZY Other details as noted in HPI Comment: All other systems reviewed and negative Constitutional: denies: chills, fever Gastrointestinal: denies: abdominal pain, vomiting Genitourinary: dysuria, frequency. denies: hematuria, discharge ED Past Medical Hx - Past Medical History Previous Medical History?: Yes Hx Hypertension: Yes Hx Diabetes: Yes Hx GERD: Yes Hx Renal Disease: No Hx Arthritis: Yes Hx Asthma: No Hx COPD: No Hx HIV: No Additional medical history: "heart problems" - Surgical History Past Surgical History?: Yes Additional Surgical History: Hysterectomy, Spinal fusion, Tubal ligation - Social History Smoking Status: Unknown if ever smoked Substance Use Type: None - Medications Home Medications: Home Medications Medication Instructions Recorded Confirmed Last Taken Type Aspirin 325 mg PO DAILY 09/02/15 04/18/19 03/01/19 09:00 History Metoprolol 100 mg PO BID 09/02/15 04/18/19 03/06/19 History Triamterene/Hydrochlorothiazid 1 tab PO DAILY 09/02/15 04/18/19 03/07/19 04:30 History [Triamterene-Hctz 75-50 mg] metFORMIN 750 mg PO DAILY 08/23/16 04/18/19 03/06/19 09:00 History Prazosin [Minipress] 2 mg PO BID 08/25/16 04/18/19 03/07/19 05:00 History Baclofen [Lioresal] 10 mg PO DAILY 02/27/19 04/18/19 03/06/19 09:00 History Gabapentin [Neurontin] 300 mg PO QHS 02/27/19 04/18/19 03/06/19 09:00 History Pravastatin [Pravachol] 40 mg PO QHS 02/27/19 04/18/19 03/07/19 04:30 History HYDROcodone/APAP 5-325 [[place] 1 each PO Q4HR PRN #20 tablet 03/07/19 04/18/19 Unknown Rx 5-325 mg TAB] Ciprofloxacin HCl [Ciprofloxacin 500 mg PO Q12HR #14 tab 04/20/19 Unknown Rx TAB] ED Physical Exam - General Limitations: No Limitations General appearance: alert, in no apparent distress - Head Head exam: Present: atraumatic, normocephalic - Eye Eye exam: Present: normal appearance, PERRL, EOMI - ENT ENT exam: Present: mucous membranes moist - Neck Neck exam: Present: normal inspection - Respiratory Respiratory exam: Present: normal lung sounds bilaterally. Absent: respiratory distress - Cardiovascular Cardiovascular Exam: Present: regular rate, normal rhythm - GI/Abdominal GI/Abdominal exam: Present: soft. Absent: distended, tenderness - Extremities Exam Extremities exam: Present: normal inspection - Back Exam Back exam: Absent: CVA tenderness (R), CVA tenderness (L) - Neurological Exam Neurological exam: Present: alert, oriented X3 - Psychiatric Psychiatric exam: Present: normal affect, normal mood - Skin Skin exam: Present: warm, dry, intact, normal color ED Course Vital Signs 05/09/19 08:30 Temperature 97.5 F L Pulse Rate 74 Respiratory 16 Rate Blood Pressure 130/77 O2 Sat by Pulse 100 Oximetry ED Medical Decision Making - Medical Decision Making - exam deferred; pt will be seeing her [employer] tomorrow, does not want an additional pelvic exam today - pt currently taking valtrex for possible genital herpes outbreak - UA shows no evidence of UTI - vitals normal - Differential Diagnosis genital herpes, vaginal dryness secondary to menopause, uti Critical care attestation.: If time is entered above; I have spent that time in minutes in the direct care of this critically ill patient, excluding procedure time. ED Disposition Clinical Impression: Dysuria Disposition: -01 TO HOME OR SELFCARE Is pt being admited?: No Condition: Stable Instructions: Dysuria (ED) Referrals: ENEIDA DAIGLE MD [Staff Physician] - 05/10/19 Forms: Work/School Release Form(ED) Time of Disposition: 10:27
== END 2019-05-09 10:34 | disposition home or self-care (01) ==
LOC: ED 08:14
DX: R30.0 Dysuria (principal); R10.9 Unspecified abdominal pain; N89.8 Other specified noninflammatory disorders of vagina; I10 Essential (primary) hypertension; E11.9 Type 2 diabetes mellitus without complications; K21.9 Gastro-esophageal reflux disease without esophagitis; M19.90 Unspecified osteoarthritis, unspecified site; Z90.710 Acquired absence of both cervix and uterus; Z88.8 Allergy status to other drugs, medicaments and biological substances; Z79.899 Other long term (current) drug therapy
CPT/HCPCS: 81001; 93005; 93010; 99283

== ENCOUNTER 2019-06-26 09:33 | Outpatient (CLI) | payer BC ==
[2019-06-26 11:17] LABS: Chol/HDL Ratio 2.16 %
[2019-06-30 13:43] LABS: Vitamin D, 25-OH, D2 <4 ng/mL
== END 2019-06-26 09:34 | disposition home or self-care (01) ==
LOC: LAB 09:33
PROVIDERS: ATTEND Internal Medicine
DX: Z13.29 Encounter for screening for other suspected endocrine disorder (principal); Z13.21 Encounter for screening for nutritional disorder; E78.00 Pure hypercholesterolemia, unspecified; I10 Essential (primary) hypertension; K21.9 Gastro-esophageal reflux disease without esophagitis; M19.90 Unspecified osteoarthritis, unspecified site; F41.9 Anxiety disorder, unspecified; Z90.710 Acquired absence of both cervix and uterus
CPT/HCPCS: 36415; 80061; 82306; 82607; 83036; 84132; 84443

== ENCOUNTER 2019-09-30 09:06 | Outpatient (CLI) | payer BC ==
[2019-09-30 10:07] LABS: C-Reactive Protein 0.2 mg/dL (0.00-1.30)
--- NOTE | 2019-09-30 10:49 | XRay Report ---
BILATERAL FEET, 3 VIEWS INDICATION: G57.61 G57.62 LESION OF PLANTAR. COMPARISON: None. IMPRESSION: No acute osseous or soft tissue abnormality. Mild degenerative changes are noted in t he midfoot region bilaterally. No erosive joint pathology. Tiny right plantar spur and medium left pl tonja spur are identified. Signer Name: Rick Johnston Jr, MD Signed: 09/30/2019 10:45 AM Workstation Name: [id number]
--- NOTE | 2019-09-30 10:50 | XRay Report ---
RIGHT HAND, 3 VIEWS INDICATION: M13.849 OTHER SPECIFIED ARTHRITIS UNSPECIFIED HAND. COMPARISON: None. IMPRESSION: There is mild to moderate joint space narrowing throughout the interphalangeal joints of all fingers. No evidence for bony erosion, fracture or bone lesion. No acute osseous injury or soft tissue abnormality. Signer Name: Rick Johnston Jr, MD Signed: 09/30/2019 10:46 AM Workstation Name: [id number]
[2019-10-03 17:13] LABS: ANA Screen, IFA Negative (Negative)
== END 2019-09-30 09:07 | disposition home or self-care (01) ==
LOC: XRAY 09:06
PROVIDERS: ATTEND Internal Medicine
DX: M13.849 Other specified arthritis, unspecified hand (principal)
CPT/HCPCS: 36415; 84550; 85652; 86038; 86140; 86618

== ENCOUNTER 2020-01-07 07:56 | Outpatient (CLI) | payer BC ==
--- NOTE | 2020-01-07 09:05 | Cat Scan Report ---
CT of the abdomen and pelvis without contrast INDICATION: UTI COMPARISON: 04/18/2019 FINDINGS: The lung bases are clear. The liver, spleen, pancreas, adrenal glands and kidneys show no s ignificant abnormalities. There are no calculi seen in either kidney. No hydronephrosis or perinephri c edema. No gross renal masses. No definite gallbladder or biliary tree abnormality. No fluid or edenilson opathy in the upper abdomen. CT of the pelvis shows a normal appendix. No ureteral stones are seen. No stone fragments seen in the bladder. Uterus has been removed. There are scattered colonic diverticula without diverticulitis. Th ere has been prior lumbar fusion. IMPRESSION: Negative study. No kidney stones or inflammatory process seen. Automated exposure control was utilized to diminish radiation dose. Signer Name: Meir Espinosa MD Signed: 01/07/2020 9:01 AM Workstation Name: [id number]
== END 2020-01-07 07:57 | disposition home or self-care (01) ==
LOC: CT 07:56
PROVIDERS: ATTEND Urology
DX: K57.30 Diverticulosis of large intestine without perforation or abscess without bleeding (principal); M43.26 Fusion of spine, lumbar region; N39.0 Urinary tract infection, site not specified; Z90.710 Acquired absence of both cervix and uterus
CPT/HCPCS: 74176

== ENCOUNTER 2020-08-05 07:37 | Outpatient (CLI) | payer BC, MEDICARE ==
[2020-08-05 08:06] LABS: Basophils # (Auto) 0.1 K/mm3 (0.0-0.1); Eosinophils # (Auto) 0.2 K/mm3 (0.0-0.4); Hemoglobin 12.2 gm/dl (10.1-14.3); Lymphocytes # (Auto) 2.3 K/mm3 (1.2-5.4); Lymphocytes % (Auto) 44.3 % (13.4-35.0); Mean Corpuscular HGB Conc 32 % (30-34); Mean Corpuscular Volume 81 fl (79-97); Monocytes # (Auto) 0.4 K/mm3 (0.0-0.8); Monocytes % (Auto) 7.4 % (0.0-7.3); Platelet Count 199 K/mm3 (140-440); Red Blood Count 4.67 M/mm3 (3.65-5.03); Red Cell Distribution Width 14.7 % (13.2-15.2)
[2020-08-05 08:28] LABS: Alanine Aminotransferase 17 units/L (7-56); Albumin 4.4 g/dL (3.9-5); BUN/Creatinine Ratio 18; Blood Urea Nitrogen 16 mg/dL (7-17); Calcium 10.1 mg/dL (8.4-10.2); Chol/HDL Ratio 1.81 %; HDL Cholesterol 93 mg/dL (40-59); Hemolysis Index 1; LDL Cholesterol,Direct 84 mg/dL (50-130)
[2020-08-08 13:38] LABS: Vitamin D, 25-OH, D2 <4 ng/mL
== END 2020-08-05 07:38 | disposition home or self-care (01) ==
LOC: LAB 07:37
PROVIDERS: ATTEND Internal Medicine
DX: E78.5 Hyperlipidemia, unspecified (principal); E11.9 Type 2 diabetes mellitus without complications; Z00.00 Encounter for general adult medical examination without abnormal findings; Z13.29 Encounter for screening for other suspected endocrine disorder; Z13.21 Encounter for screening for nutritional disorder
CPT/HCPCS: 36415; 80053; 80061; 82306; 82607; 83036; 84443; 85025

== ENCOUNTER 2020-09-02 07:43 | Outpatient (CLI) | payer BC, MEDICARE ==
--- NOTE | 2020-09-02 08:33 | XRay Report ---
CHEST 2 VIEWS INDICATION / CLINICAL INFORMATION: SHORTNESS OF BREATH. COMPARISON: 04/18/2019 FINDINGS: SUPPORT DEVICES: None. HEART / MEDIASTINUM: Borderline enlarged, unchanged. LUNGS / PLEURA: No significant pulmonary or pleural abnormality. No pneumothorax. ADDITIONAL FINDINGS: No significant additional findings. IMPRESSION: 1. No acute findings. 2. Stable borderline enlarged cardiac silhouette. Signer Name: Best Marley MD Signed: 09/02/2020 8:29 AM Workstation Name: [id number]
== END 2020-09-02 07:44 | disposition home or self-care (01) ==
LOC: XRAY 07:43
PROVIDERS: ATTEND Internal Medicine
DX: R06.02 Shortness of breath (principal)
CPT/HCPCS: 71046

== ENCOUNTER 2020-12-14 07:48 | Outpatient (CLI) | payer BC, MEDICARE ==
[2020-12-14 10:43] LABS: Chol/HDL Ratio 1.85 %
== END 2020-12-14 07:49 | disposition home or self-care (01) ==
LOC: LAB 07:48
PROVIDERS: ATTEND Internal Medicine
DX: E11.9 Type 2 diabetes mellitus without complications (principal); E78.5 Hyperlipidemia, unspecified
CPT/HCPCS: 36415; 80061; 83036

== ENCOUNTER 2021-01-05 06:44 | Day surgery (SDC) | payer BC, MEDICARE ==
[2021-01-05] MEDS ORDERED: SODIUM CHLORIDE 0.9% 1000 ML 1,000 ML IV SCH (07:00)
--- NOTE | 2021-01-05 07:45 | Anesthesia Consultation ---
Anesthesia Consult and Med Hx Date of service: 01/05/21 - Airway Anesthetic Teeth Evaluation: Partials (upper) ROM Head & Neck: Inadequate (LROM, arthiritis) Mental/Hyoid Distance: Adequate Mallampati Class: Class II Intubation Access Assessment: Probably Good - Pulmonary Exam CTA: Yes - Cardiac Exam Cardiac Exam: RRR - Pre-Operative Health Status ASA Pre-Surgery Classification: ASA2 Proposed Anesthetic Plan: MAC - Pre-Anesthesia Comment Pre-Anesthesia Comments: +Covid July 2020 - Pulmonary Hx Smoking: Yes - Cardiovascular System Hx Hypertension: Yes (Palpitations) - Central Nervous System Hx Back Pain: Yes - Gastrointestinal Hx Gastroesophageal Reflux Disease: Yes - Endocrine Hx Non-Insulin Dependent Diabetes: Yes - Hematic Hx Anemia: No - Other Systems Hx Cancer: No - Additional Comments Anesthesia Medical History Comments: Hyperlipidemia, Anxiety/Depression
--- NOTE | 2021-01-05 07:49 | Anesthesia Day of Surgery ---
Anesthesia Day of Surgery - Day of Surgery Patient Examined: Yes Patient H&P Reviewed: Yes Patient is NPO: Yes Beta Blockers: Yes Cardiac Clearance: Yes
[2021-01-05] MEDS ORDERED: LIDOCAINE MPF (2%) 20 MG/1 ML VIAL 5 ML ONE (08:08)
[2021-01-05] MEDS ORDERED: propofoL 200 MG/20 ML VIAL IV ONE (08:09)
--- NOTE | 2021-01-05 08:58 | Short Stay Summary ---
Short Stay Documentation Date of service: 01/05/21 Narrative H&P: The patient presents for EGD to evaluate refractory reflux symptoms despite medications and epigastric pain. - History Past Medical History: diabetes, hypertension Past Surgical History: hysterectomy, Other (spinal fusion, tubal ligastion) Social history: no significant social history, no smoking, no alcohol abuse - Allergies and Medications Current Medications: Allergies No Known Allergies Allergy (Verified 11/18/15 08:32) Home Medications Medication Instructions Recorded Confirmed Last Taken Type Aspirin 325 mg PO DAILY 09/02/15 04/18/19 12/27/20 History Metoprolol 100 mg PO BID 09/02/15 04/18/19 01/05/21 History Triamterene/Hydrochlorothiazid 1 tab PO DAILY 09/02/15 04/18/19 01/05/21 History [Triamterene-Hctz 75-50 mg] metFORMIN 750 mg PO DAILY 08/23/16 04/18/19 01/04/21 History Prazosin 2 mg PO BID 08/25/16 04/18/19 03/07/19 05:00 History Baclofen [Lioresal] 10 mg PO DAILY 02/27/19 04/18/19 03/06/19 09:00 History Gabapentin 300 mg PO QHS 02/27/19 04/18/19 03/06/19 09:00 History Pravastatin [Pravachol] 40 mg PO QHS 02/27/19 04/18/19 03/07/19 04:30 History Active Medications Sodium Chloride (Nacl 0.9% 1000 Ml) 1,000 mls @ 50 mls/hr IV DIRECT TERRANCE Last Admin: 01/05/21 07:30 Dose: 50 mls/hr Documented by: - Physical exam General appearance: no acute distress, well-nourished Integumentary: no rash, no growths, no abnormal pigmentation HEENT: Atraumatic, PERRLA, EOMI, Mucous membr. moist/pink Lungs: Clear to auscultation, Normal air movement Breasts: deferred Heart: Regular rate, Normal S1, Normal S2, No murmurs Gastrointestinal: normoactive bowel sounds, no tenderness, no distended, no masses, no guarding, no organomegaly Female Genitourinary: deferred Rectal Exam: deferred Extremities: no ischemia, pulses intact, pulses symmetrical, No edema, normal temperature, normal color, Full ROM Neurological: Normal gait, Normal speech, Strength at 5/5 X4 ext, Normal tone, Sensation intact, Cranial nerves 3-12 NL - Brief post op/procedure progress note Date of procedure: 01/05/21 Findings: see dictation Estimated blood loss: none Pathology: list (antral biopsies for h. pylori) Specimen disposition: to lab Condition: stable - Disposition Condition at discharge: Good Disposition: DC- TO HOME OR SELFCARE - Discharge Diagnoses (1) GERD (gastroesophageal reflux disease) Status: Acute (2) Epigastric pain Status: Acute Short Stay Discharge Plan Activity: other (No driving for 24 hours.) Weight Bearing Status: Full Weight Bearing Diet: regular Follow up with: VESNA SCHAEFFER MD [Primary Care Provider] - 7 Days
--- NOTE | 2021-01-05 09:00 | Operative Report ---
Operative Report Operative Report: Date of procedure: 01/05/2021 Procedure: Esophagogastroduodenoscopy with biopsies of the antrum for H. pylori Preprocedure diagnosis: Refractory GERD symptoms despite medications. Occasional epigastric pain. Post procedure diagnosis: Normal-appearing upper digestive tract. Endoscopist: Dr. Payne Anesthesia: Monitored anesthesia care per anesthesia department Medications: Propofol per anesthesia. Estimated blood loss: 0 After careful discussion of the nature and purpose of the procedure as well as details the technique risks benefits and alternatives consent was obtained. The patient was placed in the left lateral decubitus position and medicated per anesthesia. The tip of the [employer] EQ 570 video scope was passed per orum under direct vision into the esophagus and advanced into the stomach and descending duodenum. The descending duodenum the duodenal bulb and pylorus were symmet rical and normal. The scope was withdrawn into the stomach and the stomach then gently insufflated with air. The antrum was normal. Biopsies were taken in the prepyloric region for H. pylori testing. The stomach was further insufflated and the scope was then retroflexed and partially withdrawn. The cardia, fundus, and body of the stomach were within normal limits and easily distensible.The sc ope was then withdrawn in the forward position. The esophagogastric junction was at 38 cm. The Z-line was sharp. The esophageal body was normal throughout. The procedure was was well tolerated and the patient was observed in recovery. Impressions: Normal-appearing upper digestive tract. Plan: Continue dietary therapy and medications for reflux. Electronically signed: Yobani Payne MD
[2021-01-05 09:56] VITALS: BP 122/77
== END 2021-01-05 06:45 | disposition home or self-care (01) ==
LOC: GIO 06:44
PROVIDERS: ATTEND Internal Medicine Gastroenterology
DX: K21.9 Gastro-esophageal reflux disease without esophagitis (principal); K29.50 Unspecified chronic gastritis without bleeding; K31.89 Other diseases of stomach and duodenum; H40.9 Unspecified glaucoma; E78.00 Pure hypercholesterolemia, unspecified; I10 Essential (primary) hypertension; M19.90 Unspecified osteoarthritis, unspecified site; E11.9 Type 2 diabetes mellitus without complications; F32.9 Major depressive disorder, single episode, unspecified; F41.9 Anxiety disorder, unspecified; Z79.899 Other long term (current) drug therapy; Z79.82 Long term (current) use of aspirin; Z79.84 Long term (current) use of oral hypoglycemic drugs; Z98.49 Cataract extraction status, unspecified eye; Z98.51 Tubal ligation status; Z90.710 Acquired absence of both cervix and uterus; Z98.890 Other specified postprocedural states
CPT/HCPCS: 43239; 82962; 88305; 88342; J2704; J7030

== ENCOUNTER 2021-04-05 08:29 | Outpatient (CLI) | payer BC, MEDICARE ==
--- NOTE | 2021-04-05 10:12 | XRay Report ---
Lumbosacral spine 4+ views INDICATION / CLINICAL INFORMATION: BACK PAIN. COMPARISON: Radiographs dated 05/23/2018 FINDINGS: VERTEBRAE: No acute fracture. Mild anterolisthesis of L4 on L5. DISC SPACES / FACET JOINTS:Fusion hardware with disc spacer at L5-S1 appear similar to prior radiogra phs. Multilevel degenerative facet disease as a similar appearance. PARASPINAL SOFT TISSUES:No significant abnormality. ADDITIONAL FINDINGS: None. IMPRESSION: 1. Mild anterolisthesis of L4 on L5. 2. Stable fusion hardware at L5-S1 without acute abnormality. 3. Stable facet arthropathy. Signer Name: Cullen Rao MD Signed: 04/05/2021 10:08 AM Workstation Name: [id number]
== END 2021-04-05 08:30 | disposition home or self-care (01) ==
LOC: XRAY 08:29
PROVIDERS: ATTEND Internal Medicine
DX: M43.16 Spondylolisthesis, lumbar region (principal); M43.27 Fusion of spine, lumbosacral region; M47.816 Spondylosis without myelopathy or radiculopathy, lumbar region
CPT/HCPCS: 72110

== ENCOUNTER 2021-04-13 16:04 | Outpatient (CLI) | payer BC, MEDICARE ==
[2021-04-13 16:49] LABS: BUN/Creatinine Ratio 26; Basophils # (Auto) 0.1 K/mm3 (0.0-0.1); Basophils % (Auto) 0.9 % (0.0-1.8); Blood Urea Nitrogen 21 mg/dL (7-17); Calcium 9.8 mg/dL (8.4-10.2); Chol/HDL Ratio 1.98 %; Eosinophils # (Auto) 0.2 K/mm3 (0.0-0.4); Eosinophils % (Auto) 2.8 % (0.0-4.3); HDL Cholesterol 77 mg/dL (40-59); Hemolysis Index 5; LDL Cholesterol,Direct 75 mg/dL (50-130); Lymphocytes % (Auto) 49.7 % (13.4-35.0); Mean Corpuscular HGB Conc 32 % (30-34); Mean Corpuscular Volume 83 fl (79-97); Monocytes # (Auto) 0.5 K/mm3 (0.0-0.8); Monocytes % (Auto) 8.3 % (0.0-7.3); Platelet Count 183 K/mm3 (140-440); Red Blood Count 4.49 M/mm3 (3.65-5.03); Red Cell Distribution Width 14.9 % (13.2-15.2)
== END 2021-04-13 16:05 | disposition home or self-care (01) ==
LOC: LAB 16:04
PROVIDERS: ATTEND Internal Medicine
DX: E11.9 Type 2 diabetes mellitus without complications (principal); I10 Essential (primary) hypertension; E78.5 Hyperlipidemia, unspecified; R53.83 Other fatigue
CPT/HCPCS: 36415; 80048; 80061; 82607; 83036; 85025

== ENCOUNTER 2021-04-22 09:48 | Outpatient (CLI) | payer BC, MEDICARE ==
--- NOTE | 2021-04-22 16:13 | Mammography Report ---
DIGITAL SCREENING MAMMOGRAM WITH CAD, 04/22/2021 INDICATION: Routine screening mammography. TECHNIQUE: Digital bilateral 2D mammography was obtained in the craniocaudal and mediolateral obliq ue projections. This examination was interpreted with the benefit of Computer-Aided Detection analysi s. COMPARISON: 03/30/2018. FINDINGS: Breast Density: The breasts are heterogeneously dense, which may obscure small masses. There is no evidence of dominant mass, suspicious calcifications or architectural distortion in eithe r breast. Lateral benign-appearing calcification is unchanged IMPRESSION: Follow up recommendation: Routine yearly BI-RADS Category 1: Negative. A "normal" or negative report should not discourage follow up or biopsy of a clinically significant f inding. A written summary of these findings will be mailed to the patient. The patient will be entered into a mammography reporting system which will generate a reminder letter for the patient's next appointmen t at the appropriate interval. The [employer] recommends yearly mammograms starting at age 40 and continuing as l negro as a woman is in good health. Breast MRI is recommended for women with an approximate 20-25% or greater lifetime risk of breast cancer, including women with a strong family history of breast or ova mc cancer or who have been treated for Hodgkin's disease. Signer Name: Umberto Cristobal MD Signed: 04/22/2021 4:09 PM Workstation Name: [id number]
== END 2021-04-22 09:49 | disposition home or self-care (01) ==
LOC: MAMMO 09:48
PROVIDERS: ATTEND Internal Medicine
DX: Z12.31 Encounter for screening mammogram for malignant neoplasm of breast (principal)
CPT/HCPCS: 77067

== ENCOUNTER 2021-04-26 10:24 | Emergency (ER) | payer BC, MEDICARE ==
[2021-04-26] MEDS ORDERED: ASPIRIN 325 MG TAB PO ONE (11:00)
[2021-04-26 11:03] VITALS: BP 171/79
--- NOTE | 2021-04-26 11:26 | XRay Report ---
. CHEST 2 VIEWS INDICATION / CLINICAL INFORMATION: chest tightness. COMPARISON: 09/02/2020 FINDINGS: SUPPORT DEVICES: None. HEART / MEDIASTINUM: No significant abnormality. LUNGS / PLEURA: No significant pulmonary or pleural abnormality. No pneumothorax. ADDITIONAL FINDINGS: No significant additional findings. IMPRESSION: 1. No acute findings. Signer Name: Jose Mcneill MD Signed: 04/26/2021 11:21 AM Workstation Name: [id number]
[2021-04-26 11:56] LABS: Basophils # (Auto) 0.1 K/mm3 (0.0-0.1); Eosinophils # (Auto) 0.1 K/mm3 (0.0-0.4); Eosinophils % (Auto) 1.2 % (0.0-4.3); Hematocrit 39.9 % (30.3-42.9); Hemoglobin 12.9 gm/dl (10.1-14.3); Lymphocytes # (Auto) 2.6 K/mm3 (1.2-5.4); Lymphocytes % (Auto) 42.5 % (13.4-35.0); Mean Corpuscular HGB Conc 32 % (30-34); Mean Corpuscular Volume 82 fl (79-97); Monocytes # (Auto) 0.4 K/mm3 (0.0-0.8); Monocytes % (Auto) 6.2 % (0.0-7.3); Platelet Count 188 K/mm3 (140-440); Red Blood Count 4.86 M/mm3 (3.65-5.03); Red Cell Distribution Width 14.7 % (13.2-15.2)
[2021-04-26 12:22] LABS: Alanine Aminotransferase 20 units/L (7-56); Albumin 4.4 g/dL (3.9-5); Blood Urea Nitrogen 15 mg/dL (7-17); Calcium 10.3 mg/dL (8.4-10.2); Hemolysis Index 12
[2021-04-26 12:27] LABS: BUN/Creatinine Ratio 21
--- NOTE | 2021-04-27 18:06 | Electrocardiograph Report ---
[facility] Test Date: 2021-04-26 Test Time: 10:43:07 Pat Name: JOSE F LIGHT Department: Room: Gender: F Clinical Lab Clerk: KATHIE : 1950 Requested By: ED DOC Order Number: [id number] Reading MD: Jayne Waltno Measurements Intervals [place] Rate: 78 P: 48 MN: 154 QRS: 17 QRSD: 82 T: 56 QT: 407 QTc: 466 Interpretive Statements Sinus rhythm Probable left atrial enlargement Left ventricular hypertrophy No previous ECG available for comparison Electronically Signed On 04-27-2021 18:06:16 EDT by Jayne Walton
== END 2021-04-26 17:00 ==
LOC: ED 10:24
DX: R07.9 Chest pain, unspecified (principal); Z53.21 Procedure and treatment not carried out due to patient leaving prior to being seen by health care provider
CPT/HCPCS: 36415; 71046; 80053; 84484; 85025; 93005

== ENCOUNTER 2021-04-28 10:58 | Outpatient (CLI) | payer BC, MEDICARE ==
--- NOTE | 2021-04-28 12:06 | Mammography Report ---
DEXA BONE DENSITY SCAN INDICATION / CLINICAL INFORMATION: Z13.82. 70 years Female COMPARISON: DEXA scan dated 06/08/2012. LUMBAR SPINE, L1-L4: - Bone mineral density (BMD) = 0.875 g/cm2. - T-score = -1.6 - Z-score = -0.2 Change (%) since most recent prior (if available): -1.0 LEFT HIP, NECK : - Bone mineral density (BMD) = 0.579 g/cm2. - T-score = -2.4 - Z-score = -1.2 Change (%) since most recent prior (if available): -9.6 10-YEAR FRACTURE RISK (FRAX) (%) based on LEFT FEMUR - Major Osteoporotic Fracture / Hip Fracture: 6.2% / 1.4% IMPRESSION: 1. WHO Classification: Osteopenia. Fracture Risk: Increased. Note: 10-Year Fracture Risk (FRAX) not reported. This DEXA unit lacks FRAX functionality. BMD Reporting Guidelines (ISCD, 2015) BMD Reporting in Postmenopausal Women and in Men Age 50 and Older - T-scores are preferred. - The WHO densitometric classification is applicable. BMD Reporting in Females Prior to Menopause and in Males Younger Than Age 50 - Z-scores, not T-scores, are preferred. This is particularly important in children. - A Z-score of -2.0 or lower is defined as below the expected range for age, and a Z-score above -2.0 is within the expected range for age. - Osteoporosis cannot be diagnosed in men under age 50 on the basis of BMD alone. - The WHO diagnostic criteria may be applied to women in the menopausal transition. http://www.iscd.org/official-positions/5945-mvwo-crewssxv-positions-adult/ Signer Name: Cachorro Ross MD Signed: 04/28/2021 12:02 PM Workstation Name: [id number]
[2021-04-28 16:07] LABS: Blood Urea Nitrogen 17 mg/dL (7-17)
--- NOTE | 2021-04-28 18:03 | Cat Scan Report ---
CT head/brain wo con INDICATION: EPISODIC CLUSTER HEADACHE , NOT INTRACTABLE. TECHNIQUE: All CT scans at this location are performed using CT dose reduction for ALARA by means of automated e xposure control. COMPARISON: Head CT on 04/18/2019. FINDINGS: There is no evidence of hemorrhage, hydrocephalus, brain edema, or mass effect/mass lesion. There is overall normal brain formation and brain volume for the patient's age. Ventricular and cisternal/sulc al size is normal for age. The included paranasal sinuses and mastoid air cells are clear. The orbits appear unremarkable. IMPRESSION: 1. No acute findings. Signer Name: Jose Mcneill MD Signed: 04/28/2021 5:59 PM Workstation Name: [id number]
--- NOTE | 2021-04-28 18:06 | Cat Scan Report ---
CT ABDOMEN AND PELVIS WITH CONTRAST HISTORY: Abdominal pain COMPARISON: 04/18/2019 TECHNIQUE: Routine abdominal and pelvic CT exam performed following intravenous contrast administrat ion.. All CT scans at this location are performed using CT dose reduction for ALARA by means of autom ated exposure control. FINDINGS: CT ABDOMEN: Lung Bases: No significant abnormality. Liver: No significant abnormality. Biliary: No significant abnormality. Spleen: No significant abnormality. Unenlarged. Pancreas: No significant abnormality. Adrenals: No significant abnormality. Kidneys: No significant abnormality. Lymphatics: No lymphadenopathy. Vasculature: No significant abnormality. Bowel/Peritoneum: Nonobstructive bowel pattern. Diverticulosis without mesocolonic fat stranding. No free air. No free fluid. Normal appendix. CT PELVIC: : No significant abnormality. Lymphatics: No lymphadenopathy. Osseous Structures: No aggressive appearing osseous lesions. Additional Findings: None IMPRESSION: 1. No acute findings. 2. Colonic diverticulosis without evidence of diverticulitis. Signer Name: Jose Mcneill MD Signed: 04/28/2021 6:01 PM Workstation Name: [email or web address]
== END 2021-04-28 10:59 | disposition home or self-care (01) ==
LOC: MAMMO 10:58
PROVIDERS: ATTEND Internal Medicine
DX: M85.88 Other specified disorders of bone density and structure, other site (principal); R10.9 Unspecified abdominal pain; G44.019 Episodic cluster headache, not intractable; K57.30 Diverticulosis of large intestine without perforation or abscess without bleeding
CPT/HCPCS: 36415; 70450; 74177; 77080; 82565; 84520; Q9967

== ENCOUNTER 2021-07-09 06:58 | Outpatient (CLI) | payer BC, MEDICARE ==
[2021-07-09 07:41] LABS: Hematocrit 35.9 % (30.3-42.9); Hemoglobin 12.2 gm/dl (10.1-14.3); Mean Corpuscular HGB Conc 34 % (30-34); Mean Corpuscular Volume 80 fl (79-97); Platelet Count 205 K/mm3 (140-440); Red Blood Count 4.48 M/mm3 (3.65-5.03); Red Cell Distribution Width 14.3 % (13.2-15.2)
[2021-07-09 08:00] LABS: Bacteria,Urine 1+ /HPF (Negative); Bilirubin,Urine NEG (Negative); Blood,Urine NEG (Negative); Color,Urine Straw (Yellow); Protein,Urine <15 mg/dL mg/dL (Negative); Urobilinogen,Urine < 2.0 mg/dL (<2.0); WBC,Urine < 1.0 /HPF (0.0-6.0)
[2021-07-09 08:29] LABS: Alanine Aminotransferase 14 units/L (7-56); Albumin 4.2 g/dL (3.9-5); Blood Urea Nitrogen 21 mg/dL (7-17); Calcium 9.2 mg/dL (8.4-10.2); Chol/HDL Ratio 2.23 %; HDL Cholesterol 78 mg/dL (40-59); Hemolysis Index 7; LDL Cholesterol,Direct 91 mg/dL (50-130)
[2021-07-09 08:31] LABS: BUN/Creatinine Ratio 35
[2021-07-09 17:36] LABS: Platelet Estimate Consistent w Auto; Total Cells Counted 100
[2021-07-13 14:27] LABS: Vitamin D, 25-OH, D2 <4 ng/mL
== END 2021-07-09 06:59 | disposition home or self-care (01) ==
LOC: LAB 06:58
PROVIDERS: ATTEND Internal Medicine
DX: Z00.00 Encounter for general adult medical examination without abnormal findings (principal); Z13.29 Encounter for screening for other suspected endocrine disorder; E78.5 Hyperlipidemia, unspecified; E11.9 Type 2 diabetes mellitus without complications; R53.83 Other fatigue; I10 Essential (primary) hypertension; N39.0 Urinary tract infection, site not specified
CPT/HCPCS: 36415; 80053; 80061; 81001; 82306; 84443; 85007; 85025

== ENCOUNTER 2021-07-15 06:58 | Outpatient (CLI) | payer BC, MEDICARE | END 2021-07-15 06:59 | disposition home or self-care (01) | LOC: LAB 06:58 | PROVIDERS: ATTEND Internal Medicine | DX: E11.9 Type 2 diabetes mellitus without complications (principal); E53.8 Deficiency of other specified B group vitamins | CPT/HCPCS: 36415; 82607; 83036 ==

== ENCOUNTER 2021-08-25 06:50 | Outpatient (CLI) | payer BC, MEDICARE ==
[2021-08-25 08:39] LABS: Free T4 (Free Thyroxine) 1.22 ng/dL (0.76-1.46)
== END 2021-08-25 06:51 | disposition home or self-care (01) ==
LOC: LAB 06:50
PROVIDERS: ATTEND Internal Medicine Gastroenterology
DX: R63.4 Abnormal weight loss (principal)
CPT/HCPCS: 36415; 84439; 84443

== ENCOUNTER 2021-11-16 06:34 | Outpatient (CLI) | payer BC, MEDICARE ==
[2021-11-16 08:56] LABS: Blood Urea Nitrogen 18 mg/dL (7-17); Chol/HDL Ratio 2.13 %; HDL Cholesterol 82 mg/dL (40-59); Hemolysis Index 13; LDL Cholesterol,Direct 90 mg/dL (50-130)
[2021-11-16 09:02] LABS: BUN/Creatinine Ratio 26
== END 2021-11-16 06:35 | disposition home or self-care (01) ==
LOC: LAB 06:34
PROVIDERS: ATTEND Internal Medicine
DX: E11.9 Type 2 diabetes mellitus without complications (principal); E78.5 Hyperlipidemia, unspecified; E87.6 Hypokalemia
CPT/HCPCS: 36415; 80048; 80061; 83036

== ENCOUNTER 2022-01-24 14:59 | Emergency (ER) | payer BC, MEDICARE ==
[2022-01-24 17:06] VITALS: BP 140/97
[2022-01-24] MEDS ORDERED: METOPROLOL TARTRATE 50 MG TAB PO ONE (17:27)
--- NOTE | 2022-01-24 17:28 | Emergency Department Report ---
ED Recheck HPI - General Chief Complaint: High BP Stated Complaint: BLOOD PRESSURE HIGH Time Seen by Provider: 01/24/22 17:27 Source: patient Mode of arrival: Ambulatory Limitations: No Limitations - History of Present Illness Initial Comments: Patient is a 71-year-old female that comes to the emergency room to have her blood pressure rechecked. She took her metoprolol 100 mg this morning. She then went to her doctor. Her doctor's appointment was at 3:00. Her blood pressure was elevated at that time. The patient had no chest pain or shortness of breath. She was just there for routine check. However, she had not taken her noon dose of metoprolol 100 mg p.o. Given the blood pressure was high her primary care sent her here. She arrives to triage with a blood pressure of 140/97. She has no chest pain or shortness of breath. She has no edema. She is much younger appearing than stated age. MD Complaint: other - Related Data Home Medications Medication Instructions Recorded Confirmed Last Taken Aspirin 325 mg PO DAILY 09/02/15 04/18/19 12/27/20 Metoprolol 100 mg PO BID 09/02/15 04/18/19 01/05/21 Triamterene/Hydrochlorothiazid 1 tab PO DAILY 09/02/15 04/18/19 01/05/21 [Triamterene-Hctz 75-50 mg] metFORMIN 750 mg PO DAILY 08/23/16 04/18/19 01/04/21 Prazosin 2 mg PO BID 08/25/16 04/18/19 03/07/19 05:00 Baclofen [Lioresal] 10 mg PO DAILY 02/27/19 04/18/19 03/06/19 09:00 Gabapentin 300 mg PO QHS 02/27/19 04/18/19 03/06/19 09:00 Pravastatin [Pravachol] 40 mg PO QHS 02/27/19 04/18/19 03/07/19 04:30 Allergies Allergy/AdvReac Type Severity Reaction Status Date / Time No Known Allergies Allergy Verified 11/18/15 08:32 ED Review of Systems ROS: Stated complaint: BLOOD PRESSURE HIGH Other details as noted in HPI Comment: All other systems reviewed and negative ED Past Medical Hx - Past Medical History Previous Medical History?: Yes Hx Hypertension: Yes (Palpitations) Hx Diabetes: Yes Hx GERD: Yes Hx Arthritis: Yes Hx HIV: No Additional medical history: "heart problems" - Surgical History Past Surgical History?: Yes Additional Surgical History: Hysterectomy, Spinal fusion, Tubal ligation - Family History Family history: no significant - Social History Smoking Status: Never Smoker - Medications Home Medications: Home Medications Medication Instructions Recorded Confirmed Last Taken Type Aspirin 325 mg PO DAILY 09/02/15 04/18/19 12/27/20 History Metoprolol 100 mg PO BID 09/02/15 04/18/19 01/05/21 History Triamterene/Hydrochlorothiazid 1 tab PO DAILY 09/02/15 04/18/19 01/05/21 History [Triamterene-Hctz 75-50 mg] metFORMIN 750 mg PO DAILY 08/23/16 04/18/19 01/04/21 History Prazosin 2 mg PO BID 08/25/16 04/18/19 03/07/19 05:00 History Baclofen [Lioresal] 10 mg PO DAILY 02/27/19 04/18/19 03/06/19 09:00 History Gabapentin 300 mg PO QHS 02/27/19 04/18/19 03/06/19 09:00 History Pravastatin [Pravachol] 40 mg PO QHS 02/27/19 04/18/19 03/07/19 04:30 History ED Physical Exam - General Limitations: No Limitations General appearance: alert, in no apparent distress - Head Head exam: Present: atraumatic, normocephalic - Eye Eye exam: Present: normal appearance - ENT ENT exam: Present: mucous membranes moist - Neck Neck exam: Present: normal inspection - Respiratory Respiratory exam: Present: normal lung sounds bilaterally. Absent: respiratory distress - Cardiovascular Cardiovascular Exam: Present: regular rate, normal rhythm. Absent: systolic murmur, diastolic murmur, rubs, gallop - GI/Abdominal GI/Abdominal exam: Present: soft, normal bowel sounds - Extremities Exam Extremities exam: Present: normal inspection - Back Exam Back exam: Present: normal inspection - Neurological Exam Neurological exam: Present: alert, oriented X3 - Psychiatric Psychiatric exam: Present: normal affect, normal mood - Skin Skin exam: Present: warm, dry, intact, normal color. Absent: rash ED Course Vital Signs 01/24/22 17:05 Temperature 98.4 F Pulse Rate 70 Respiratory 18 Rate Blood Pressure 140/97 O2 Sat by Pulse 100 Oximetry ED Recheck MDM - Core Measures Measure Exclusions: not indicated - Medical Decision Making Patient ambulatory to room 43 without shortness of breath or chest pain. I have given her her 100 mg noon dose of metoprolol. I have instructed her to take her nighttime dose this evening. Given that the patient is having no symptoms. I am not working her hypertension up. This is a chronic issue, her blood pressure being high in the state of not taking her second dose of metoprolol today. She takes metoprolol 100 mg 3 times daily. Patient being discharged home with discharge plan of care including diet, activity, medications and follow-up. She verbalizes understanding of plan of care Vital Signs 01/24/22 17:05 Temperature 98.4 F Pulse Rate 70 Respiratory 18 Rate Blood Pressure 140/97 O2 Sat by Pulse 100 Oximetry Critical care attestation.: If time is entered above; I have spent that time in minutes in the direct care of this critically ill patient, excluding procedure time. ED Disposition Clinical Impression: Chronic hypertension Disposition: HOME / SELF CARE / HOMELESS Is pt being admited?: No Does the pt Need Aspirin: No Condition: Stable Instructions: Hypertension (ED), Hypertension, Adult Additional Instructions: Take your medications timely as prescribed to avoid issues like today. Follow-up with your primary care for reevaluation in 48 hours. Monitor your blood pressure at home to ensure that your medications are controlling her blood pressure well, at all times a day. Minimize fat, salt and fried foods in your diet Stay well-hydrated with water Referrals: VESNA SCHAEFFER MD [Staff Physician] - 3-5 Days Time of Disposition: 17:32
== END 2022-01-24 17:49 | disposition home or self-care (01) ==
LOC: ED 14:59
DX: I10 Essential (primary) hypertension (principal); E11.9 Type 2 diabetes mellitus without complications
CPT/HCPCS: 99282

== ENCOUNTER 2022-02-02 08:15 | Outpatient (CLI) | payer BC, MEDICARE ==
--- NOTE | 2022-02-02 13:10 | Magnetic Resonance Report ---
MRI CERVICAL SPINE WITHOUT CONTRAST INDICATION / CLINICAL INFORMATION: M54.41, NECK PAIN, ARTHRITIS. TECHNIQUE: Multisequence, multiplanar images of the cervical spine were obtained. Motion related artifacts obscu ring the details COMPARISON: None available. FINDINGS: CRANIOCERVICAL JUNCTION:No significant abnormality. ALIGNMENT: Normal alignment of the vertebral bodies and articular facets; mild straightening of cervi lizzy lordosis VERTEBRAE:Normal marrow signal and vertebral body height for age. VISUALIZED SPINAL CORD: No significant abnormality. [id number] ANALYSIS: C2-3: No significant disc abnormality, spinal canal stenosis, or neural foraminal stenosis. C3-4: Shallow disc protrusion in the right subarticular zone; neuroforamina and the spinal cord are n ormal C4-5: Midline disc protrusion; dural sac mildly displaced on the left side; neuroforamina are normal C5-6: Type I endplate degenerative changes; mild disc height loss; disc osteophyte complex extending bilaterally more towards the left side; soft disc component bilaterally; moderate bilateral foraminal stenoses worse on the left side C6-7: Trace retrolisthesis; left central canal zone disc protrusion extending towards the left subart icular zone and left foraminal zone; moderate left foraminal stenoses C7-T1: Right subarticular zone disc protrusion; right foraminal stenoses PARASPINAL SOFT TISSUES: No significant abnormality. ADDITIONAL FINDINGS: None. IMPRESSION: C5-C6: Disc osteophyte complex extending bilaterally more towards the left side; moderate bilateral f oraminal stenoses worse on the left side C6-C7: Left central canal zone disc protrusion extending towards the left foraminal zone; moderate le ft foraminal stenoses C7-T1: Right subarticular zone disc protrusion resulting in moderate right foraminal stenoses Signer Name: Alex Crisostomo MD Signed: 02/02/2022 1:05 PM Workstation Name: [id number]
--- NOTE | 2022-02-02 15:15 | Magnetic Resonance Report ---
MRI LUMBAR SPINE WITHOUT CONTRAST INDICATION / CLINICAL INFORMATION: M54.41 LUMBAGO W/ SCIATICA RIGHT SIDE. TECHNIQUE: Multisequence, multiplanar images of the lumbar spine were obtained. COMPARISON: None available. FINDINGS: Lumbosacral junction L5-S1; anterior lumbar interbody fusion at L5-S1 ALIGNMENT: Normal lumbar lordosis without significant scoliosis. VERTEBRAE:Normal marrow signal and vertebral body height for age. VISUALIZED SPINAL CORD: No significant abnormality. Conus ends at L1 vertebral body level [id number] ANALYSIS: T11-T12: Mild facet joint degenerative changes on the right side; distal spinal cord normal T12-L1: Shallow disc bulge; neuroforamina are normal. Joint degenerative changes L1-2: Disc profile and the neuroforamina are normal; mild facet joint degenerative changes L2-3: Shallow asymmetric disc bulge laterally bilaterally more on the right side; mild facet and liga mentous hypertrophy; neuroforamina are normal L3-4: Asymmetric disc bulge more to the left side; moderate facet and ligamentous hypertrophy; degene rative cyst in the right superior articular process; moderate foraminal stenoses bilaterally L4-5: Trace anterolisthesis; marked facet joint degenerative changes and ligamentous hypertrophy bila terally; asymmetric disc bulge disc bulge towards left side; mild to moderate foraminal stenoses bila terally; suggestion of edematous changes in the right pedicle of L4 Biomechanical stress related L5-S1: Anterior lumbar interbody fusion with hardware; full osseous integration; foramina are normal PARASPINAL SOFT TISSUES: No significant abnormality. ADDITIONAL FINDINGS: None. IMPRESSION: L5-S1: Anterior lumbar interbody fusion; neuroforamina are normal L3-L4: Asymmetric disc bulge more to the left side; moderate bilateral foraminal stenoses L4-L5: Asymmetric disc bulge more towards left side; mild to moderate foraminal stenoses bilaterally Signer Name: Alex Crisostomo MD Signed: 02/02/2022 3:11 PM Workstation Name: [email or web address]
== END 2022-02-02 08:16 | disposition home or self-care (01) ==
LOC: MRI 08:15
PROVIDERS: ATTEND Psychiatry & Neurology Neurology
DX: M51.37 Other intervertebral disc degeneration, lumbosacral region (principal); M54.41 Lumbago with sciatica, right side; M47.815 Spondylosis without myelopathy or radiculopathy, thoracolumbar region; M43.27 Fusion of spine, lumbosacral region; M48.07 Spinal stenosis, lumbosacral region; M40.40 Postural lordosis, site unspecified; M50.321 Other cervical disc degeneration at C4-C5 level; M50.33 Other cervical disc degeneration, cervicothoracic region; M50.31 Other cervical disc degeneration, high cervical region
CPT/HCPCS: 72141; 72148

== ENCOUNTER 2022-04-07 06:43 | Outpatient (CLI) | payer BC, MEDICARE | END 2022-04-07 06:44 | disposition home or self-care (01) | LOC: LAB 06:43 | PROVIDERS: ATTEND Internal Medicine | DX: E11.9 Type 2 diabetes mellitus without complications (principal) | CPT/HCPCS: 36415; 83036 ==

== ENCOUNTER 2022-04-28 10:46 | Outpatient (CLI) | payer BC, MEDICARE ==
--- NOTE | 2022-05-01 16:34 | Mammography Report ---
DIGITAL SCREENING MAMMOGRAM WITH CAD, 04/28/2022 CLINICAL INFORMATION / INDICATION: Routine screening mammography. TECHNIQUE: Digital bilateral 2D mammography was obtained in the craniocaudal and mediolateral obliqu e projections. This examination was interpreted with the benefit of Computer-Aided Detection analysis . COMPARISON: 04/22/2021, 04/20/2020 FINDINGS: Breast Density: The breasts are heterogeneously dense, which may obscure small masses. No dominant mass, suspicious calcifications, or architectural distortion in either breast. Bilateral benign calcifications are unchanged. IMPRESSION: No mammographic evidence of malignancy. Follow up recommendation: Routine yearly screening mammogram. BI-RADS Category 2: BENIGN. A "normal" or negative report should not discourage follow up or biopsy of a clinically significant f inding. A written summary of these findings will be mailed to the patient. The patient will be entered into a mammography reporting system which will generate a reminder letter for the patient's next appointmen t at the appropriate interval. The [employer] recommends yearly mammograms starting at age 40 and continuing as l negro as a woman is in good health. Breast MRI is recommended for women with an approximate 20-25% or greater lifetime risk of breast cancer, including women with a strong family history of breast or ova mc cancer or who have been treated for Hodgkin's disease. Signer Name: Cachorro Ross MD Signed: 05/01/2022 4:29 PM Workstation Name: [id number]
== END 2022-04-28 10:47 | disposition home or self-care (01) ==
LOC: MAMMO 10:46
PROVIDERS: ATTEND Internal Medicine
DX: Z12.31 Encounter for screening mammogram for malignant neoplasm of breast (principal); N64.89 Other specified disorders of breast
CPT/HCPCS: 77067